=== PATIENT | female | born 1950 | race Caucasian/White ===

== ENCOUNTER 2017-02-09 10:45 | Outpatient (CLI) | payer MEDICARE, OTHER ==
[2017-02-09 11:02] LABS: #Basophils 0.1 thou/uL (0.0-0.2); #Eosinphils 0.2 thou/uL (0.0-0.7); #Lymphocytes 1.5 thou/uL (1.20-3.40); #Monocytes 0.4 thou/uL (0.11-0.59); #Neutrophils 3.6 thou/uL (1.40-6.50); %Basophils 1.4 % (0.0-1.0); %Eosinophils 3.5 % (0.0-10.0); %Lymphocytes 25.8 % (21.0-51.0); %Monocytes 6.7 % (0.0-10.0); %Neutrophils 62.6 % (42.0-75.0); Hemoglobin 13.8 g/dL (12.0-16.0); Mean Corpuscular HGB CONC 33.9 g/dL (32.0-36.0); Mean Corpuscular Hemoglobin 32.6 pg (27.0-31.0); Mean Platelet Volume 5.7 fL (7.4-10.4); Platelet Count 259 thou/uL (130-400); RBC Distribution Width 11.4 % (11.5-14.5); Red Blood Cell (RBC) Count 4.24 mill/uL (4.20-5.40); White Blood Cell (WBC) Count 5.8 thou/uL (4.8-10.8)
[2017-02-09 11:21] LABS: ALT (SGPT) 15 U/L (0-55); AST (SGOT) 20 U/L (5-34); Albumin 4.3 g/dL (3.4-4.8); Alkaline Phosphatase 40 U/L (40-150); Anion Gap 12 mmol/L (10-20); BUN (Urea Nitrogen) 11 mg/dL (9.8-20.1); Bilirubin, Total 0.7 mg/dL (0.2-1.2); Calc. Creatinine Clearance 0 mL/min (70-130); Calcium 9.1 mg/dL (7.8-10.44); Carbon Dioxide 24 mmol/L (23-31); Cardiac Risk 2.7 (Less than 4.5); Chloride 107 mmol/L (98-107); Cholesterol 177 mg/dL (< 200 Desired); Estimated GFR-MDRD 86; Globulin 2.1 g/dL (2.4-3.5); Glucose 100 mg/dL (80-115); HDL Cholesterol 66 mg/dL (>60 Neg Risk); LDL Cholesterol, Calculated 100 mg/dL; Protein, Total 6.4 g/dL (5.8-8.1); Sodium 139 mmol/L (136-145); Triglycerides 57 mg/dL (Less than 150)
[2017-02-09 18:10] LABS: Iron 84 ug/dL (50-170)
[2017-02-09 18:44] LABS: Ferritin 114.84 ng/mL (10-291)
== END 2017-02-09 10:46 | disposition home or self-care (01) ==
LOC: HPCALD 10:45
PROVIDERS: ATTEND Family Medicine
DX: Z13.6 Encounter for screening for cardiovascular disorders (principal); I10 Essential (primary) hypertension; D50.9 Iron deficiency anemia, unspecified; R94.6 Abnormal results of thyroid function studies
CPT/HCPCS: 36415; 80053; 80061; 82728; 83540; 84443; 85025

== ENCOUNTER 2017-02-12 09:21 | Outpatient (CLI) | payer MEDICARE, OTHER ==
[2017-02-12 11:29] LABS: Free T4 (Free Thyroxine) 0.88 ng/dL (0.70-1.48)
[2017-02-12 17:45] LABS: Free T3 2.78 pg/mL (1.71-3.71)
== END 2017-02-12 09:22 | disposition home or self-care (01) ==
LOC: HPCALD 09:21
PROVIDERS: ATTEND Family Medicine
DX: R94.6 Abnormal results of thyroid function studies (principal)
CPT/HCPCS: 36415; 84439; 84481

== ENCOUNTER 2019-05-05 16:06 | Inpatient (IN) | payer MEDICARE ==
[2019-05-05 16:52] LABS: #Basophils 0.1 thou/uL (0.0-0.2); #Eosinphils 0.1 thou/uL (0.0-0.7); #Lymphocytes 1.6 thou/uL (1.20-3.40); #Monocytes 0.9 thou/uL (0.11-0.59); #Neutrophils 9.8 thou/uL (1.40-6.50); %Basophils 0.6 % (0.0-1.0); %Eosinophils 0.6 % (0.0-10.0); %Lymphocytes 12.5 % (21.0-51.0); %Monocytes 7.5 % (0.0-10.0); %Neutrophils 78.7 % (42.0-75.0); Bilirubin Negative (Negative); Blood, Urine Trace (Negative); Clarity Clear (Clear); Glucose, Urine (Dipstick) Negative (Negative); Hemoglobin 9.9 g/dL (12.0-16.0); Leukocyte Negative (Negative); Mean Corpuscular HGB CONC 32.3 g/dL (32.0-36.0); Mean Corpuscular Hemoglobin 29.5 pg (27.0-31.0); Mean Corpuscular Volume 91.6 fL (78.0-98.0); Nitrite Negative (Negative); Platelet Count 442 thou/uL (130-400); Protein, Urine (Dipstick) Trace mg/dL (Neg-Trace); RBC Distribution Width 11.9 % (11.5-14.5); Red Blood Cell (RBC) Count 3.35 mill/uL (4.20-5.40); Urobilinogen 0.2 mg/dL (0.2-1.0); White Blood Cell (WBC) Count 12.4 thou/uL (4.8-10.8); pH, Urine 5.5 (5.0-9.0)
[2019-05-05 16:56] LABS: RBC/HPF 0-3 HPF (0-3)
[2019-05-05 16:57] LABS: Bacteria/HPF Rare-Few HPF (None Seen); Squamous Epithelial 0-3 HPF (0-3); WBC/HPF 0-3 HPF (0-3)
[2019-05-05 17:06] LABS: ALT (SGPT) 59 U/L (8-55); AST (SGOT) 66 U/L (5-34); Albumin 3.9 g/dL (3.4-4.8); Alkaline Phosphatase 61 U/L (40-150); Anion Gap 20 mmol/L (10-20); BUN (Urea Nitrogen) 63 mg/dL (9.8-20.1); Bilirubin, Total 0.2 mg/dL (0.2-1.2); Calc. Creatinine Clearance 0 mL/min (70-130); Calcium 10.5 mg/dL (7.8-10.44); Carbon Dioxide 26 mmol/L (23-31); Chloride 87 mmol/L (98-107); Estimated GFR-MDRD 26; Globulin 3.2 g/dL (2.4-3.5); Glucose 107 mg/dL (80-115); Potassium 3.5 mmol/L (3.5-5.1); Protein, Total 7.1 g/dL (6.0-8.3); Sodium 129 mmol/L (136-145)
[2019-05-05] MEDS ORDERED: Ketorolac Tromethamine 30 MG/ML VIAL ONE (17:17)
[2019-05-05] MEDS ORDERED: traMADol HCl 50 MG TAB ONE (17:17)
[2019-05-05] MEDS ORDERED: Ondansetron ODT 4 MG TAB SL PRN (20:53)
[2019-05-05] MEDS ORDERED: Ondansetron PF 4 MG/2 ML Vial IVP PRN (20:53)
[2019-05-05] MEDS: Sodium Chloride 0.9% 1,000 ML IV SCH (21:26)
[2019-05-05] MEDS ORDERED: LIDOCAINE TOP PRN (21:33)
[2019-05-05] MEDS ORDERED: Alendronate Sodium 70 mg Tablet PO SCH (21:45)
[2019-05-05 21:48] VITALS: BMI 23.8
[2019-05-05] MEDS: Ascorbic Acid 500 mg Chewable Tablet PO SCH (23:56)
[2019-05-06] MEDS: Sodium Chloride 0.9% 1,000 ML IV SCH ×4 (03:58→23:53)
[2019-05-06 05:47] LABS: #Basophils 0.1 thou/uL (0.0-0.2); #Eosinphils 0.3 thou/uL (0.0-0.7); #Neutrophils 7.7 thou/uL (1.40-6.50); %Basophils 0.7 % (0.0-1.0); %Eosinophils 2.7 % (0.0-10.0); %Lymphocytes 9.6 % (21.0-51.0); %Monocytes 10.2 % (0.0-10.0); %Neutrophils 76.8 % (42.0-75.0); Hemoglobin 7.9 g/dL (12.0-16.0); Mean Corpuscular HGB CONC 31.4 g/dL (32.0-36.0); Mean Corpuscular Hemoglobin 28.9 pg (27.0-31.0); Mean Corpuscular Volume 92.2 fL (78.0-98.0); Platelet Count 332 thou/uL (130-400); RBC Distribution Width 11.9 % (11.5-14.5); Red Blood Cell (RBC) Count 2.74 mill/uL (4.20-5.40)
[2019-05-06 05:48] LABS: Anion Gap 12 mmol/L (10-20)
[2019-05-06 05:54] LABS: BUN (Urea Nitrogen) 48 mg/dL (9.8-20.1); Calc. Creatinine Clearance 54 mL/min (70-130); Calcium 8.5 mg/dL (7.8-10.44); Carbon Dioxide 27 mmol/L (23-31); Chloride 96 mmol/L (98-107); Estimated GFR-MDRD 55; Glucose 95 mg/dL (80-115); Potassium 3.2 mmol/L (3.5-5.1); Sodium 132 mmol/L (136-145)
[2019-05-06] MEDS: Ascorbic Acid 500 mg Chewable Tablet PO SCH ×4 (06:01→23:52)
[2019-05-06] MEDS ORDERED: Potassium Chloride 20 MEQ TAB PO SCH (07:00)
[2019-05-06] MEDS ORDERED: Prevnar 13-Val Conj/PF 0.5 ML SYRINGE IM ONE (09:00)
[2019-05-06] MEDS ORDERED: Hydrochlorothiazide 25 MG TAB PO SCH (09:00)
[2019-05-06] MEDS: Gabapentin 100 MG CAP PO SCH ×2 (09:22→20:47)
[2019-05-06] MEDS: Calcium Carbonate 500 MG TAB PO SCH ×2 (09:23→20:47)
[2019-05-06] MEDS: Famotidine 20 MG TAB PO SCH ×2 (09:24→20:48)
[2019-05-06] MEDS: Furosemide 40 MG TAB PO SCH (09:24)
[2019-05-06] MEDS: Oxybutynin 5 MG TAB PO SCH (09:24)
[2019-05-06] MEDS: Stress 600 With Zinc 1 TAB PO SCH (09:25)
[2019-05-06] MEDS: GARLIC 100 MG PO SCH (09:27)
[2019-05-06] MEDS: Potassium [Potassium] 99 MG PO SCH (09:27)
[2019-05-06] MEDS ORDERED: Lidocaine 2% Jelly 5 ML TUBE ONE (09:27)
[2019-05-06] MEDS: traMADol HCl 50 MG TAB PO PRN ×2 (09:33→17:15)
--- NOTE | 2019-05-06 13:00 | HP ---
CHIEF COMPLAINT: Generalized weakness. HISTORY OF PRESENT ILLNESS: A 69-year-old female brought to the [facility] Emergency Department via EMS yesterday afternoon with complaints of generalized weakness over an unknown period of time; the patient lives at home alone. Workup of the patient reveals an acute renal failure with dehydration. She was subsequently started on normal saline intravenous fluids. The patient has chronic venous stasis with ulcerations involving her lower extremities, for which she is followed regularly by Dr. Cuello; due to her venous stasis, she is on both hydrochlorothiazide and Lasix, which may have contributed to her current state. The patient was subsequently admitted to the floor yesterday afternoon. As of this morning, after waking the patient from sleep, she has no current complaints. However, is unable to voice if she is reasonably feeling better or not at this point. She is oriented to place and person, but not time. She does appear to have good insight into her reason for admission here today. PAST MEDICAL HISTORY: Includes osteoporosis, osteoarthritis, hypertension, chronic venous stasis with ulcerations of the lower extremities. PAST SURGICAL HISTORY: Right reverse total shoulder arthroplasty, left reverse total shoulder arthroplasty, left hip surgery, hysterectomy, cystocele and rectocele repair via Dr. Erickson. Surgery for rectal prolapse, teeth extraction, neck surgery, tonsillectomy. MEDICATIONS: 1. Alendronate 70 mg weekly. 2. Ascorbic acid 500 mg q.6 hours. 3. Calcium carbonate 1000 mg b.i.d. 4. Lasix 40 mg daily. 5. Gabapentin 100 mg b.i.d. 6. Hydrochlorothiazide 12.5 mg daily. 7. Lisinopril 40 mg daily. 8. Oxybutynin 10 mg daily. 9. Tramadol p.r.n. ALLERGIES: SULFA AND LATEX. SOCIAL HISTORY: Denies tobacco, EtOH, or illicit drug use. She lives alone. FAMILY HISTORY IS: Noncontributory. REVIEW OF SYSTEMS: GENERAL: Denies fever, chills, or diaphoresis. EAR, NOSE, AND THROAT: Denies sore throat nasal drainage, or congestion. CARDIOVASCULAR: Denies chest pain or palpitations. RESPIRATORY: Denies shortness of breath or cough. GASTROINTESTINAL: Denies abdominal pain, nausea, vomiting, diarrhea or constipation. GENITOURINARY: Denies dysuria. MUSCULOSKELETAL: She has chronic joint pain. DERMATOLOGY: She has chronic venous stasis ulcers to the lower extremities. NEUROLOGICAL: Denies headache. LABORATORY DATA: White blood cell count is 10, hemoglobin and hematocrit of 7.9 and 25.2, platelets were 332. Sodium yesterday was 129, now it is 132; potassium is 3.2. BUN yesterday was 63, now 48. Creatinine yesterday 1.94, now is 1.00. GFR yesterday was 26, now it is 55. TSH is normal. PHYSICAL EXAMINATION: VITAL SIGNS: Temperature is 97.9, pulse is 68, respiratory rate is 18, oxygen is 98% on room air, blood pressure 123/83. GENERAL: The patient is alert and oriented to person and place, but not time. HEAD, EYES, EARS, NOSE, AND THROAT: Normocephalic and atraumatic. Extraocular muscles are intact bilaterally. She is wearing glasses. Moist mucous membranes. NECK: Supple with no lymphadenopathy. CARDIOVASCULAR: Regular rate and rhythm. She has a 2/6 systolic murmur. Normal S1, S2. RESPIRATORY: Clear to auscultation bilaterally without wheezes, rales, or rhonchi. ABDOMEN: Soft, nontender to palpation. EXTREMITIES: She has chronic stasis ulcers to bilateral lower extremities, which are currently bandaged. She has trace to 1+ edema to the lower extremities at baseline. NEUROLOGIC: Nonfocal with cranial nerves 2 through 12 grossly intact. ASSESSMENT AND PLAN: 1. Acute renal failure and prerenal azotemia, for which the patient has received intravenous fluids overnight with noted improvement in her renal function. We will decrease her IV fluids from 150 mL an hour to 100 mL an hour. 2. Dehydration. We will hold the patient's hydrochlorothiazide and continue her IV fluids at this time. 3. Normocytic anemia. The patient's hemoglobin is lower than her baseline. Will order iron studies and check her B12 level. 4. Chronic stasis ulcers to the lower extremities. The patient is followed by Dr. Cuello for this. We will continue wound care while she is here. 5. Hypokalemia. We will provide the patient with 40 mEq of potassium. 6. Hypertension. The patient is hemodynamically stable with blood pressure at goal. We will resume her blood pressure medications other than discontinuation of hydrochlorothiazide 12.5 mg daily. 7. Generalized weakness. We will have consultation via Physical Therapy and Occupational Therapy. 8. Prophylaxis. We will provide famotidine for GI prophylaxis. We will withhold DVT prophylaxis with Lovenox secondary to decreased renal function and anemia at this time. 9. Code status is full. 10. Disposition. We will plan for the patient to be able to return home once her renal status is back to baseline and she has been cleared by Physical Therapy and Occupational Therapy. Job ID: [id number] MTDD
[2019-05-06] MEDS: Lisinopril 10 MG TAB PO SCH (20:48)
[2019-05-06] MEDS: Acetaminophen/Codeine 30-300mg Tablet PO PRN (20:52)
[2019-05-07 05:36] LABS: #Basophils 0.1 thou/uL (0.0-0.2); #Eosinphils 0.2 thou/uL (0.0-0.7); #Lymphocytes 1.1 thou/uL (1.20-3.40); #Monocytes 0.7 thou/uL (0.11-0.59); #Neutrophils 6.9 thou/uL (1.40-6.50); %Basophils 0.9 % (0.0-1.0); %Eosinophils 2.4 % (0.0-10.0); %Lymphocytes 11.8 % (21.0-51.0); %Monocytes 8.1 % (0.0-10.0); %Neutrophils 76.7 % (42.0-75.0); Hemoglobin 8.3 g/dL (12.0-16.0); Mean Corpuscular HGB CONC 31.7 g/dL (32.0-36.0); Mean Corpuscular Hemoglobin 29.3 pg (27.0-31.0); Mean Corpuscular Volume 92.4 fL (78.0-98.0); Mean Platelet Volume 5.1 fL (7.4-10.4); Platelet Count 328 thou/uL (130-400); RBC Distribution Width 12.2 % (11.5-14.5); Red Blood Cell (RBC) Count 2.83 mill/uL (4.20-5.40)
[2019-05-07 05:45] LABS: Anion Gap 13 mmol/L (10-20)
[2019-05-07 06:15] LABS: ALT (SGPT) 36 U/L (8-55); AST (SGOT) 26 U/L (5-34); Albumin 2.8 g/dL (3.4-4.8); Alkaline Phosphatase 48 U/L (40-150); BUN (Urea Nitrogen) 25 mg/dL (9.8-20.1); Bilirubin, Total Less than 0.2 mg/dL (0.2-1.2); Calc. Creatinine Clearance 78 mL/min (70-130); Calcium 8.7 mg/dL (7.8-10.44); Carbon Dioxide 26 mmol/L (23-31); Chloride 102 mmol/L (98-107); Estimated GFR-MDRD 84; Globulin 2.4 g/dL (2.4-3.5); Glucose 99 mg/dL (80-115); Protein, Total 5.2 g/dL (6.0-8.3); Sodium 138 mmol/L (136-145)
[2019-05-07] MEDS: Ascorbic Acid 500 mg Chewable Tablet PO SCH ×3 (06:36→17:38)
[2019-05-07] MEDS: traMADol HCl 50 MG TAB PO PRN ×2 (08:21→20:43)
[2019-05-07] MEDS: Calcium Carbonate 500 MG TAB PO SCH ×2 (08:27→20:43)
[2019-05-07] MEDS: Furosemide 40 MG TAB PO SCH (08:28)
[2019-05-07] MEDS: Famotidine 20 MG TAB PO SCH ×2 (08:28→20:42)
[2019-05-07] MEDS: Oxybutynin 5 MG TAB PO SCH (08:29)
[2019-05-07] MEDS: Gabapentin 100 MG CAP PO SCH ×2 (08:29→20:42)
[2019-05-07] MEDS: Stress 600 With Zinc 1 TAB PO SCH (08:29)
[2019-05-07] MEDS: Sodium Chloride 0.9% 1,000 ML IV SCH (10:04)
[2019-05-07] MEDS: Potassium [Potassium] 99 MG PO SCH (10:24)
[2019-05-07] MEDS: GARLIC 100 MG PO SCH (10:25)
--- NOTE | 2019-05-07 12:19 | PRG ---
DATE OF SERVICE: 05/07/2019 SUBJECTIVE: The patient is doing fine. She is complaining of pain in both legs, chronic in nature. She denies any weakness, chest pain, shortness of breath, or headaches. OBJECTIVE: VITAL SIGNS: Blood pressure of 140/69, temperature of 98, pulse of 72, RR of 20, and O2 saturation 98% on room air. GENERAL: The patient is alert, oriented x3, not in respiratory distress. HEENT: Normocephalic, atraumatic. Pupils equal, reactive to light, wet mucous membrane. Negative for tonsillopharyngeal congestion. NECK: Supple. Negative for lymphadenopathy. CHEST AND LUNGS: Symmetrical expansion. Clear to auscultation. HEART: Regular rate and rhythm. Negative for murmur. ABDOMEN: Flat, soft, nontender. Negative for CVA tenderness. EXTREMITIES: Good symmetrical movement of both upper extremities. Lower extremity has JANELL wrap. She has chronic stasis ulcers that is being managed by Wound Care. NEUROLOGIC: Nonfocal. LABORATORY DATA: CBC; hemoglobin of 8.3, hematocrit of 26.2, platelet count of 328, MCV of 92, lymphocytes of 11.8, neutrophils of 76. Comp met; sodium of 138, potassium of 3.0, BUN of 25, creatinine of 0.69, lactic acid of 8.7. ASSESSMENT: 1. Acute renal insufficiency secondary to volume depletion/dehydration, resolved. The patient is tolerating p.o. liquids. 2. Normocytic anemia, pending iron studies. 3. Chronic stasis ulcers to both lower extremities under wound care with Dr. Cuello. 4. Hypokalemia. Continue potassium replacement. 5. Hypertension, slowly introduce her blood pressure medicine to avoid hemodynamic compromise. 6. Generalized weakness with recurrent falls. Resume physical and occupational therapy on Thursday. 7. Gastrointestinal prophylaxis with famotidine. 8. Deep venous thrombosis prophylaxis with Lovenox. 9. Disposition, discontinue to home once clinically stable and cleared by Physical and Occupational Therapy. 10. logistics planning manager to assist with discharge planning. Job ID: [id number]
[2019-05-07] MEDS: Acetaminophen/Codeine 30-300mg Tablet PO PRN (12:28)
[2019-05-07 14:54] LABS: Iron 19 ug/dL (50-170); Iron Binding Capacity, Total 188 mcg/dL (265-497)
[2019-05-07] MEDS: Acetaminophen 325 MG TAB PO PRN (17:38)
[2019-05-07] MEDS: Potassium Chloride 20 MEQ TAB PO SCH (17:39)
[2019-05-07] MEDS: Lisinopril 10 MG TAB PO SCH (20:42)
[2019-05-08] MEDS: Ascorbic Acid 500 mg Chewable Tablet PO SCH ×5 (00:16→23:59)
[2019-05-08 05:36] LABS: Anion Gap 13 mmol/L (10-20); BUN (Urea Nitrogen) 15 mg/dL (9.8-20.1); Calc. Creatinine Clearance 88 mL/min (70-130); Calcium 9.1 mg/dL (7.8-10.44); Carbon Dioxide 27 mmol/L (23-31); Chloride 103 mmol/L (98-107); Estimated GFR-MDRD Greater than 90; Glucose 110 mg/dL (80-115); Sodium 140 mmol/L (136-145)
[2019-05-08] MEDS: traMADol HCl 50 MG TAB PO PRN (07:34)
[2019-05-08] MEDS: Potassium Chloride 20 MEQ TAB PO SCH ×2 (08:40→17:19)
[2019-05-08] MEDS: Gabapentin 100 MG CAP PO SCH ×2 (08:41→20:53)
[2019-05-08] MEDS: Stress 600 With Zinc 1 TAB PO SCH (08:41)
[2019-05-08] MEDS: Famotidine 20 MG TAB PO SCH ×2 (08:41→20:53)
[2019-05-08] MEDS: Furosemide 40 MG TAB PO SCH (08:41)
[2019-05-08] MEDS: Oxybutynin 5 MG TAB PO SCH (08:41)
[2019-05-08] MEDS: Potassium [Potassium] 99 MG PO SCH (08:42)
[2019-05-08] MEDS: GARLIC 100 MG PO SCH (08:44)
[2019-05-08] MEDS: Calcium Carbonate 500 MG TAB PO SCH ×2 (08:51→20:53)
[2019-05-08] MEDS: Acetaminophen/Codeine 30-300mg Tablet PO PRN ×3 (10:57→21:20)
--- NOTE | 2019-05-08 14:47 | PRG ---
DATE OF SERVICE: 05/08/2019 PRIMARY CARE PHYSICIAN: Dr. Schaeffer. SUBJECTIVE: The patient is complaining of pain in both legs, not improving with current regimen of Tylenol, Tylenol with Codeine and tramadol. She has a good appetite. She denies chest pain, shortness of breath, or weakness. OBJECTIVE: VITAL SIGNS: Blood pressure of 165/75, temperature of 98.4, pulse of 74, RR of 18, and O2 saturation 95% on room. GENERAL: The patient is alert, oriented, not in distress. HEENT: Normocephalic, atraumatic. Pupils equal, reactive to light. Wet mucous membrane. Negative for tonsillopharyngeal congestion. NECK: Supple. Negative for lymphadenopathy. CHEST AND LUNGS: Symmetrical expansion. Clear to auscultation bilaterally. HEART: Regular rate, rhythm. Negative for murmur. ABDOMEN: Flat, soft, nontender. EXTREMITIES: Good symmetrical movement of both upper and lower extremities. Lower extremities with JANELL wrap. She has chronic stasis ulcer that is being managed by Wound Care. NEUROLOGIC: Nonfocal. LABORATORY DATA: CBC; hemoglobin of 8.3, hematocrit of 26.2, platelet count of 328, neutrophils of 76, lymphocytes of 11. BMP; sodium 140, potassium of 3, chloride of 103, carbon dioxide of 27, BUN of 15, creatinine of 0.61, glucose of 110, calcium of 9.1, vitamin B12 of 2000. Iron study is still pending. ASSESSMENT: 1. Acute renal insufficiency secondary to volume depletion/dehydration, resolved. We will discontinue IV site. 2. Hypokalemia. We will increase the potassium replacement to 40 mEq b.i.d. We will discontinue her potassium home medications. 3. Chronic stasis ulcers to both lower extremity with pain, currently under controlled with regimen of Tylenol, Tylenol with Codeine and tramadol. We will administer Tylenol with Codeine every 6 hours. 4. Hypertension. Adjust blood pressure medicine. 5. Generalized weakness with recurrent falls. 6. Resume physical and occupational therapy on Thursday. 7. Transfer of care to Dr. Schaeffer in a.m. Job ID: [id number]
[2019-05-08] MEDS: Lisinopril 10 MG TAB PO SCH (20:53)
[2019-05-09] MEDS: traMADol HCl 50 MG TAB PO PRN ×2 (02:05→18:41)
[2019-05-09] MEDS: Acetaminophen/Codeine 30-300mg Tablet PO PRN ×3 (03:47→15:27)
[2019-05-09] MEDS: Ascorbic Acid 500 mg Chewable Tablet PO SCH ×3 (05:17→17:25)
[2019-05-09] MEDS: Ondansetron ODT 4 MG TAB PO PRN (05:17)
[2019-05-09 08:04] LABS: Anion Gap 14 mmol/L (10-20); BUN (Urea Nitrogen) 8 mg/dL (9.8-20.1); Calc. Creatinine Clearance 90 mL/min (70-130); Calcium 9.4 mg/dL (7.8-10.44); Carbon Dioxide 27 mmol/L (23-31); Chloride 101 mmol/L (98-107); Estimated GFR-MDRD Greater than 90; Glucose 118 mg/dL (80-115); Magnesium 1.5 mg/dL (1.6-2.6); Potassium 3.6 mmol/L (3.5-5.1); Sodium 138 mmol/L (136-145)
[2019-05-09] MEDS: Oxybutynin 5 MG TAB PO SCH (08:21)
[2019-05-09] MEDS: Gabapentin 100 MG CAP PO SCH ×2 (08:22→20:56)
[2019-05-09] MEDS: Famotidine 20 MG TAB PO SCH ×2 (08:22→20:56)
[2019-05-09] MEDS: Potassium Chloride 20 MEQ TAB PO SCH ×2 (08:22→17:25)
[2019-05-09] MEDS: Stress 600 With Zinc 1 TAB PO SCH (08:22)
[2019-05-09] MEDS: Furosemide 40 MG TAB PO SCH (08:23)
[2019-05-09] MEDS: Calcium Carbonate 500 MG TAB PO SCH ×2 (08:23→20:56)
[2019-05-09] MEDS: Amlodipine 5 MG TAB PO SCH (08:28)
[2019-05-09] MEDS: GARLIC 100 MG PO SCH (09:17)
[2019-05-09] MEDS: Lisinopril 10 MG TAB PO SCH (20:55)
[2019-05-10] MEDS: Ascorbic Acid 500 mg Chewable Tablet PO SCH ×4 (00:15→17:33)
[2019-05-10] MEDS: Calcium Carbonate 500 MG TAB PO SCH ×2 (08:23→20:53)
[2019-05-10] MEDS: Oxybutynin 5 MG TAB PO SCH (08:23)
[2019-05-10] MEDS: Gabapentin 100 MG CAP PO SCH ×2 (08:24→20:53)
[2019-05-10] MEDS: Stress 600 With Zinc 1 TAB PO SCH (08:24)
[2019-05-10] MEDS: Acetaminophen/Codeine 30-300mg Tablet PO PRN ×2 (08:24→14:08)
[2019-05-10] MEDS: Famotidine 20 MG TAB PO SCH ×2 (08:24→20:53)
[2019-05-10] MEDS: Potassium Chloride 20 MEQ TAB PO SCH ×2 (08:24→17:33)
[2019-05-10] MEDS: Furosemide 40 MG TAB PO SCH (08:24)
[2019-05-10] MEDS: Magnesium Oxide 400 MG TAB PO SCH (08:24)
[2019-05-10] MEDS: Amlodipine 5 MG TAB PO SCH (08:25)
[2019-05-10] MEDS: GARLIC 100 MG PO SCH (08:31)
[2019-05-10] MEDS: Polyethylene Glycol 3350 17 GM Packet PO PRN (11:56)
[2019-05-10] MEDS: Docusate 100 MG CAP PO PRN (11:56)
[2019-05-10] MEDS: traMADol HCl 50 MG TAB PO PRN (17:37)
[2019-05-10] MEDS: Lisinopril 10 MG TAB PO SCH (20:52)
[2019-05-11] MEDS: Ascorbic Acid 500 mg Chewable Tablet PO SCH ×4 (00:34→17:07)
[2019-05-11 05:33] LABS: #Basophils 0.1 thou/uL (0.0-0.2); #Eosinphils 0.4 thou/uL (0.0-0.7); #Lymphocytes 1.9 thou/uL (1.20-3.40); #Monocytes 0.9 thou/uL (0.11-0.59); #Neutrophils 7.9 thou/uL (1.40-6.50); %Eosinophils 3.7 % (0.0-10.0); %Lymphocytes 16.9 % (21.0-51.0); %Monocytes 7.7 % (0.0-10.0); %Neutrophils 70.7 % (42.0-75.0); Hemoglobin 9.9 g/dL (12.0-16.0); Mean Corpuscular HGB CONC 31.6 g/dL (32.0-36.0); Mean Corpuscular Hemoglobin 29.1 pg (27.0-31.0); Mean Corpuscular Volume 92.1 fL (78.0-98.0); Mean Platelet Volume 4.7 fL (7.4-10.4); Platelet Count 386 thou/uL (130-400); RBC Distribution Width 12.5 % (11.5-14.5); Red Blood Cell (RBC) Count 3.39 mill/uL (4.20-5.40); White Blood Cell (WBC) Count 11.1 thou/uL (4.8-10.8)
[2019-05-11 05:44] LABS: ALT (SGPT) 21 U/L (8-55); AST (SGOT) 13 U/L (5-34); Albumin 3.3 g/dL (3.4-4.8); Alkaline Phosphatase 47 U/L (40-150); Anion Gap 13 mmol/L (10-20); BUN (Urea Nitrogen) 16 mg/dL (9.8-20.1); Bilirubin, Total 0.2 mg/dL (0.2-1.2); Calc. Creatinine Clearance 91 mL/min (70-130); Calcium 9.8 mg/dL (7.8-10.44); Carbon Dioxide 24 mmol/L (23-31); Chloride 106 mmol/L (98-107); Estimated GFR-MDRD Greater than 90; Globulin 2.7 g/dL (2.4-3.5); Glucose 107 mg/dL (80-115); Potassium 4.7 mmol/L (3.5-5.1); Sodium 138 mmol/L (136-145)
[2019-05-11] MEDS: traMADol HCl 50 MG TAB PO PRN ×2 (07:44→14:31)
[2019-05-11] MEDS ORDERED: Lidocaine 2% Jelly 5 ML TUBE TOP PRN (07:52)
[2019-05-11] MEDS: Ondansetron ODT 4 MG TAB PO PRN (08:03)
[2019-05-11] MEDS: Calcium Carbonate 500 MG TAB PO SCH ×2 (08:52→20:21)
[2019-05-11] MEDS: Magnesium Oxide 400 MG TAB PO SCH (08:52)
[2019-05-11] MEDS: Stress 600 With Zinc 1 TAB PO SCH (08:52)
[2019-05-11] MEDS: Famotidine 20 MG TAB PO SCH ×2 (08:53→20:20)
[2019-05-11] MEDS: Gabapentin 100 MG CAP PO SCH ×3 (08:54→20:21)
[2019-05-11] MEDS: Furosemide 40 MG TAB PO SCH (08:54)
[2019-05-11] MEDS: Oxybutynin 5 MG TAB PO SCH (08:56)
[2019-05-11] MEDS: Docusate 100 MG CAP PO PRN (08:56)
[2019-05-11] MEDS: Amlodipine 5 MG TAB PO SCH (08:57)
[2019-05-11] MEDS: Polyethylene Glycol 3350 17 GM Packet PO PRN (08:59)
[2019-05-11] MEDS: GARLIC 100 MG PO SCH (09:05)
[2019-05-11] MEDS: Potassium Chloride 20 MEQ TAB PO SCH ×2 (09:06→17:07)
[2019-05-11] MEDS ORDERED: Lidocaine 2% Jelly 5 ML TUBE ONE (09:32)
[2019-05-11] MEDS: Acetaminophen/Codeine 30-300mg Tablet PO PRN ×2 (10:38→17:10)
[2019-05-11] MEDS: Lisinopril 10 MG TAB PO SCH (20:20)
[2019-05-11] MEDS: Acetaminophen 325 MG TAB PO PRN (20:21)
[2019-05-11] MEDS: diphenhydrAMINE 25 MG CAP PO PRN (20:21)
[2019-05-12] MEDS: Ascorbic Acid 500 mg Chewable Tablet PO SCH ×4 (01:13→18:18)
[2019-05-12] MEDS: traMADol HCl 50 MG TAB PO PRN ×2 (07:14→13:51)
[2019-05-12] MEDS: Famotidine 20 MG TAB PO SCH ×2 (08:08→20:22)
[2019-05-12] MEDS: Stress 600 With Zinc 1 TAB PO SCH (08:08)
[2019-05-12] MEDS: Gabapentin 100 MG CAP PO SCH ×2 (08:09→20:22)
[2019-05-12] MEDS: Magnesium Oxide 400 MG TAB PO SCH (08:09)
[2019-05-12] MEDS: Oxybutynin 5 MG TAB PO SCH (08:09)
[2019-05-12] MEDS: Calcium Carbonate 500 MG TAB PO SCH ×2 (08:09→20:21)
[2019-05-12] MEDS: Amlodipine 5 MG TAB PO SCH (08:11)
[2019-05-12] MEDS: Furosemide 40 MG TAB PO SCH (08:12)
[2019-05-12] MEDS: Potassium Chloride 20 MEQ TAB PO SCH ×2 (08:12→16:50)
[2019-05-12] MEDS: GARLIC 100 MG PO SCH (08:12)
[2019-05-12] MEDS: Acetaminophen/Codeine 30-300mg Tablet PO PRN (16:48)
[2019-05-12 20:01] VITALS: BP 109/53; TEMP 98.7
[2019-05-12] MEDS: Lisinopril 10 MG TAB PO SCH (20:21)
[2019-05-12] MEDS: diphenhydrAMINE 25 MG CAP PO PRN (20:22)
[2019-05-12] MEDS: Acetaminophen 325 MG TAB PO PRN (20:22)
== END 2019-05-12 21:34 | disposition swing bed (61) | DRG 641 ==
LOC: BURERS 16:06 → BURMED 17:34 → OBSVTOIN 05-06 13:00
PROVIDERS: ADMIT Family Medicine; ATTEND Family Medicine
DX: E86.0 Dehydration (principal); N17.9 Acute kidney failure, unspecified; I87.2 Venous insufficiency (chronic) (peripheral); M81.0 Age-related osteoporosis without current pathological fracture; I10 Essential (primary) hypertension; Z96.612 Presence of left artificial shoulder joint; Z96.611 Presence of right artificial shoulder joint; D64.9 Anemia, unspecified; E87.6 Hypokalemia; E03.9 Hypothyroidism, unspecified; Z96.642 Presence of left artificial hip joint; R29.6 Repeated falls; Z90.710 Acquired absence of both cervix and uterus; Z90.89 Acquired absence of other organs; Z88.2 Allergy status to sulfonamides; Z91.040 Latex allergy status
CPT/HCPCS: 36415; 80048; 80053; 81003; 81015; 82607; 82728; 83540; 83550; 83605; 83735; 83880; 84443; 84484; 85025; 87070; 87077; 87186; 87205; 93005; 96361; 96374; 97602; J1885; Q0162; Q0163

== ENCOUNTER 2019-05-12 21:37 | Inpatient (IN) | payer MEDICARE ==
[2019-05-13] MEDS ORDERED: Polyethylene Glycol 3350 17 GM Packet PO PRN (01:04)
[2019-05-13] MEDS ORDERED: Lidocaine 2% Jelly 5 ML TUBE TOP PRN (01:05)
[2019-05-13] MEDS: Acetaminophen/Codeine 30-300mg Tablet PO PRN ×3 (01:20→21:15)
[2019-05-13] MEDS: Ascorbic Acid 500 mg Chewable Tablet PO SCH ×3 (05:06→17:46)
[2019-05-13] MEDS: traMADol HCl 50 MG TAB PO PRN ×2 (08:07→16:40)
[2019-05-13] MEDS: Famotidine 20 MG TAB PO SCH ×2 (08:44→21:15)
[2019-05-13] MEDS: Oxybutynin 5 MG TAB PO SCH (08:44)
[2019-05-13] MEDS: Stress 600 With Zinc 1 TAB PO SCH (08:44)
[2019-05-13] MEDS: Potassium Chloride 20 MEQ TAB PO SCH ×2 (08:44→17:47)
[2019-05-13] MEDS: Calcium Carbonate 500 MG TAB PO SCH ×2 (08:44→17:47)
[2019-05-13] MEDS: Magnesium Oxide 400 MG TAB PO SCH (08:45)
[2019-05-13] MEDS: Amlodipine 5 MG TAB PO SCH (08:45)
[2019-05-13] MEDS: Furosemide 40 MG TAB PO SCH (08:45)
[2019-05-13] MEDS: Lisinopril 20 MG TAB PO SCH (08:46)
[2019-05-13] MEDS: Gabapentin 100 MG CAP PO SCH ×2 (08:46→21:15)
[2019-05-13] MEDS: diphenhydrAMINE 25 MG CAP PO PRN ×2 (13:48→21:15)
[2019-05-14] MEDS: Ascorbic Acid 500 mg Chewable Tablet PO SCH ×4 (00:17→18:15)
[2019-05-14] MEDS: Acetaminophen/Codeine 30-300mg Tablet PO PRN ×2 (04:40→10:37)
[2019-05-14] MEDS: Oxybutynin 5 MG TAB PO SCH (10:21)
[2019-05-14] MEDS: Gabapentin 100 MG CAP PO SCH ×2 (10:22→20:56)
[2019-05-14] MEDS: Magnesium Oxide 400 MG TAB PO SCH (10:22)
[2019-05-14] MEDS: Stress 600 With Zinc 1 TAB PO SCH (10:22)
[2019-05-14] MEDS: Amlodipine 5 MG TAB PO SCH (10:22)
[2019-05-14] MEDS: Calcium Carbonate 500 MG TAB PO SCH ×2 (10:26→18:14)
[2019-05-14] MEDS: Potassium Chloride 20 MEQ TAB PO SCH ×2 (10:26→18:14)
[2019-05-14] MEDS: Famotidine 20 MG TAB PO SCH ×2 (10:26→20:56)
[2019-05-14] MEDS: Furosemide 40 MG TAB PO SCH (10:27)
[2019-05-14] MEDS: Docusate 100 MG CAP PO PRN (10:27)
[2019-05-14] MEDS: Lisinopril 20 MG TAB PO SCH (10:27)
[2019-05-14] MEDS: HYDROcodone/Acetaminophen 5/325 mg Tablet PO PRN ×2 (12:16→18:15)
[2019-05-14] MEDS: diphenhydrAMINE 25 MG CAP PO PRN (12:17)
[2019-05-14] MEDS: Linezolid 600 MG TAB PO SCH (20:56)
[2019-05-15] MEDS: diphenhydrAMINE 25 MG CAP PO PRN ×2 (00:24→11:24)
[2019-05-15] MEDS: HYDROcodone/Acetaminophen 5/325 mg Tablet PO PRN ×3 (00:24→21:18)
[2019-05-15] MEDS: Ascorbic Acid 500 mg Chewable Tablet PO SCH ×4 (00:24→17:15)
[2019-05-15] MEDS: traMADol HCl 50 MG TAB PO PRN (05:24)
[2019-05-15] MEDS: Calcium Carbonate 500 MG TAB PO SCH ×2 (08:58→17:15)
[2019-05-15] MEDS: Linezolid 600 MG TAB PO SCH ×2 (08:58→21:18)
[2019-05-15] MEDS: Stress 600 With Zinc 1 TAB PO SCH (08:58)
[2019-05-15] MEDS: Amlodipine 5 MG TAB PO SCH (08:59)
[2019-05-15] MEDS: Famotidine 20 MG TAB PO SCH ×2 (08:59→21:18)
[2019-05-15] MEDS: Gabapentin 100 MG CAP PO SCH ×2 (08:59→21:18)
[2019-05-15] MEDS: Magnesium Oxide 400 MG TAB PO SCH (08:59)
[2019-05-15] MEDS: Potassium Chloride 20 MEQ TAB PO SCH ×2 (08:59→17:15)
[2019-05-15] MEDS: Furosemide 40 MG TAB PO SCH (08:59)
[2019-05-15] MEDS: Oxybutynin 5 MG TAB PO SCH (08:59)
[2019-05-15] MEDS: Saccharomyces boulardii 250 MG CAP PO SCH (08:59)
[2019-05-15] MEDS: Lisinopril 20 MG TAB PO SCH (08:59)
[2019-05-16] MEDS: Ascorbic Acid 500 mg Chewable Tablet PO SCH ×4 (00:42→17:57)
[2019-05-16 05:20] LABS: ALT (SGPT) 12 U/L (8-55); AST (SGOT) 13 U/L (5-34); Albumin 3.3 g/dL (3.4-4.8); Alkaline Phosphatase 54 U/L (40-150); Anion Gap 12 mmol/L (10-20); BUN (Urea Nitrogen) 18 mg/dL (9.8-20.1); Bilirubin, Total 0.3 mg/dL (0.2-1.2); Calc. Creatinine Clearance 80 mL/min (70-130); Calcium 8.9 mg/dL (7.8-10.44); Carbon Dioxide 22 mmol/L (23-31); Chloride 109 mmol/L (98-107); Estimated GFR-MDRD 87; Globulin 2.8 g/dL (2.4-3.5); Glucose 109 mg/dL (80-115); Potassium 4.4 mmol/L (3.5-5.1); Protein, Total 6.1 g/dL (6.0-8.3); Sodium 139 mmol/L (136-145)
[2019-05-16 05:26] LABS: #Basophils 0.1 thou/uL (0.0-0.2); #Eosinphils 0.4 thou/uL (0.0-0.7); #Lymphocytes 1.5 thou/uL (1.20-3.40); #Monocytes 0.8 thou/uL (0.11-0.59); #Neutrophils 7.2 thou/uL (1.40-6.50); %Basophils 1.1 % (0.0-1.0); %Eosinophils 4.5 % (0.0-10.0); %Lymphocytes 14.6 % (21.0-51.0); %Monocytes 7.9 % (0.0-10.0); Hemoglobin 9.7 g/dL (12.0-16.0); Mean Corpuscular Hemoglobin 29.3 pg (27.0-31.0); Mean Corpuscular Volume 94.7 fL (78.0-98.0); Platelet Count 384 thou/uL (130-400); RBC Distribution Width 13.1 % (11.5-14.5); Red Blood Cell (RBC) Count 3.32 mill/uL (4.20-5.40)
[2019-05-16] MEDS: HYDROcodone/Acetaminophen 5/325 mg Tablet PO PRN ×3 (05:51→21:51)
[2019-05-16] MEDS ORDERED: traMADol HCl 50 MG TAB ONE (09:34)
[2019-05-16] MEDS: Potassium Chloride 20 MEQ TAB PO SCH ×2 (09:42→17:56)
[2019-05-16] MEDS: Oxybutynin 5 MG TAB PO SCH (09:42)
[2019-05-16] MEDS: Famotidine 20 MG TAB PO SCH ×2 (09:42→20:36)
[2019-05-16] MEDS: Magnesium Oxide 400 MG TAB PO SCH (09:42)
[2019-05-16] MEDS: Calcium Carbonate 500 MG TAB PO SCH ×2 (09:42→17:56)
[2019-05-16] MEDS: Stress 600 With Zinc 1 TAB PO SCH (09:42)
[2019-05-16] MEDS: Gabapentin 100 MG CAP PO SCH ×2 (09:42→20:36)
[2019-05-16] MEDS: Saccharomyces boulardii 250 MG CAP PO SCH (09:42)
[2019-05-16] MEDS: traMADol HCl 50 MG TAB PO PRN (09:43)
[2019-05-16] MEDS: Furosemide 40 MG TAB PO SCH (09:44)
[2019-05-16] MEDS: Amlodipine 5 MG TAB PO SCH (09:45)
[2019-05-16] MEDS: Docusate 100 MG CAP PO PRN (09:45)
[2019-05-16] MEDS: Linezolid 600 MG TAB PO SCH ×2 (09:45→20:36)
[2019-05-16] MEDS: Lisinopril 20 MG TAB PO SCH (09:46)
[2019-05-17] MEDS: Ascorbic Acid 500 mg Chewable Tablet PO SCH ×4 (00:03→17:20)
[2019-05-17] MEDS: traMADol HCl 50 MG TAB PO PRN (00:03)
[2019-05-17] MEDS: Ondansetron ODT 4 MG TAB PO PRN (03:24)
[2019-05-17] MEDS: HYDROcodone/Acetaminophen 5/325 mg Tablet PO PRN ×2 (05:45→13:30)
[2019-05-17] MEDS: Saccharomyces boulardii 250 MG CAP PO SCH (09:33)
[2019-05-17] MEDS: Stress 600 With Zinc 1 TAB PO SCH (09:33)
[2019-05-17] MEDS: Oxybutynin 5 MG TAB PO SCH (09:33)
[2019-05-17] MEDS: Furosemide 40 MG TAB PO SCH (09:33)
[2019-05-17] MEDS: Lisinopril 20 MG TAB PO SCH (09:33)
[2019-05-17] MEDS: Calcium Carbonate 500 MG TAB PO SCH ×2 (09:34→17:20)
[2019-05-17] MEDS: Magnesium Oxide 400 MG TAB PO SCH (09:34)
[2019-05-17] MEDS: Amlodipine 5 MG TAB PO SCH (09:35)
[2019-05-17] MEDS: Linezolid 600 MG TAB PO SCH ×2 (09:35→21:39)
[2019-05-17] MEDS: Famotidine 20 MG TAB PO SCH ×2 (09:35→21:39)
[2019-05-17] MEDS: Gabapentin 100 MG CAP PO SCH ×2 (09:35→21:39)
[2019-05-17] MEDS: Potassium Chloride 20 MEQ TAB PO SCH ×2 (09:36→17:20)
[2019-05-17] MEDS: diphenhydrAMINE 25 MG CAP PO PRN (21:39)
[2019-05-18] MEDS: Ascorbic Acid 500 mg Chewable Tablet PO SCH ×4 (00:15→17:23)
[2019-05-18] MEDS: traMADol HCl 50 MG TAB PO PRN ×3 (01:43→16:34)
[2019-05-18] MEDS: Famotidine 20 MG TAB PO SCH ×2 (09:18→21:08)
[2019-05-18] MEDS: Magnesium Oxide 400 MG TAB PO SCH (09:18)
[2019-05-18] MEDS: Linezolid 600 MG TAB PO SCH ×2 (09:18→21:08)
[2019-05-18] MEDS: Furosemide 40 MG TAB PO SCH (09:18)
[2019-05-18] MEDS: Gabapentin 100 MG CAP PO SCH ×2 (09:18→21:08)
[2019-05-18] MEDS: Oxybutynin 5 MG TAB PO SCH (09:19)
[2019-05-18] MEDS: Calcium Carbonate 500 MG TAB PO SCH ×2 (09:19→16:33)
[2019-05-18] MEDS: Saccharomyces boulardii 250 MG CAP PO SCH (09:19)
[2019-05-18] MEDS: Stress 600 With Zinc 1 TAB PO SCH (09:19)
[2019-05-18] MEDS: Lisinopril 20 MG TAB PO SCH (09:20)
[2019-05-18] MEDS: Potassium Chloride 20 MEQ TAB PO SCH ×2 (09:21→16:35)
[2019-05-18] MEDS: Amlodipine 5 MG TAB PO SCH ×2 (09:22→09:24)
[2019-05-18] MEDS: diphenhydrAMINE 25 MG CAP PO PRN ×2 (09:28→21:53)
[2019-05-18] MEDS: HYDROcodone/Acetaminophen 5/325 mg Tablet PO PRN ×2 (11:10→21:09)
[2019-05-18 14:40] VITALS: BMI 19.7
[2019-05-19] MEDS: Ascorbic Acid 500 mg Chewable Tablet PO SCH ×4 (00:07→17:17)
[2019-05-19] MEDS: traMADol HCl 50 MG TAB PO PRN ×2 (06:47→11:53)
[2019-05-19] MEDS: Lisinopril 20 MG TAB PO SCH (09:40)
[2019-05-19] MEDS: Gabapentin 100 MG CAP PO SCH ×2 (09:40→21:28)
[2019-05-19] MEDS: Calcium Carbonate 500 MG TAB PO SCH ×2 (09:41→17:15)
[2019-05-19] MEDS: Stress 600 With Zinc 1 TAB PO SCH (09:41)
[2019-05-19] MEDS: Furosemide 40 MG TAB PO SCH (09:41)
[2019-05-19] MEDS: Amlodipine 5 MG TAB PO SCH (09:42)
[2019-05-19] MEDS: Famotidine 20 MG TAB PO SCH ×2 (09:43→21:29)
[2019-05-19] MEDS: Linezolid 600 MG TAB PO SCH ×2 (09:43→21:28)
[2019-05-19] MEDS: Saccharomyces boulardii 250 MG CAP PO SCH (09:43)
[2019-05-19] MEDS: Oxybutynin 5 MG TAB PO SCH (09:43)
[2019-05-19] MEDS: Potassium Chloride 20 MEQ TAB PO SCH ×2 (09:44→17:16)
[2019-05-19] MEDS: Magnesium Oxide 400 MG TAB PO SCH (09:49)
[2019-05-19] MEDS: diphenhydrAMINE 25 MG CAP PO PRN (11:55)
[2019-05-19] MEDS: HYDROcodone/Acetaminophen 5/325 mg Tablet PO PRN (21:29)
[2019-05-20] MEDS: Ascorbic Acid 500 mg Chewable Tablet PO SCH ×4 (00:11→17:04)
[2019-05-20] MEDS: diphenhydrAMINE 25 MG CAP PO PRN ×2 (00:11→17:05)
[2019-05-20] MEDS: traMADol HCl 50 MG TAB PO PRN ×2 (07:07→20:35)
[2019-05-20] MEDS ORDERED: ALPRAZolam 0.5 MG TAB PO PRN (08:00)
[2019-05-20] MEDS: Saccharomyces boulardii 250 MG CAP PO SCH (09:17)
[2019-05-20] MEDS: Linezolid 600 MG TAB PO SCH ×2 (09:17→20:36)
[2019-05-20] MEDS: Famotidine 20 MG TAB PO SCH ×2 (09:17→20:34)
[2019-05-20] MEDS: Stress 600 With Zinc 1 TAB PO SCH (09:18)
[2019-05-20] MEDS: Lisinopril 20 MG TAB PO SCH (09:18)
[2019-05-20] MEDS: Oxybutynin 5 MG TAB PO SCH (09:19)
[2019-05-20] MEDS: Magnesium Oxide 400 MG TAB PO SCH (09:19)
[2019-05-20] MEDS: Calcium Carbonate 500 MG TAB PO SCH ×2 (09:19→17:02)
[2019-05-20] MEDS: Potassium Chloride 20 MEQ TAB PO SCH ×2 (09:20→17:02)
[2019-05-20] MEDS: Gabapentin 100 MG CAP PO SCH ×2 (09:21→20:34)
[2019-05-20] MEDS: Furosemide 40 MG TAB PO SCH (09:21)
[2019-05-20] MEDS: HYDROcodone/Acetaminophen 5/325 mg Tablet PO PRN (11:09)
[2019-05-21] MEDS: HYDROcodone/Acetaminophen 5/325 mg Tablet PO PRN ×2 (02:37→17:25)
[2019-05-21] MEDS: Ascorbic Acid 500 mg Chewable Tablet PO SCH ×4 (02:43→17:18)
[2019-05-21] MEDS: Saccharomyces boulardii 250 MG CAP PO SCH (09:18)
[2019-05-21] MEDS: Calcium Carbonate 500 MG TAB PO SCH ×2 (09:18→17:16)
[2019-05-21] MEDS: Furosemide 40 MG TAB PO SCH (09:18)
[2019-05-21] MEDS: Famotidine 20 MG TAB PO SCH ×2 (09:19→21:33)
[2019-05-21] MEDS: Potassium Chloride 20 MEQ TAB PO SCH ×2 (09:19→17:16)
[2019-05-21] MEDS: Lisinopril 20 MG TAB PO SCH (09:21)
[2019-05-21] MEDS: Amlodipine 5 MG TAB PO SCH (09:27)
[2019-05-21] MEDS: Gabapentin 100 MG CAP PO SCH ×2 (09:28→21:33)
[2019-05-21] MEDS: Stress 600 With Zinc 1 TAB PO SCH (09:28)
[2019-05-21] MEDS: Oxybutynin 5 MG TAB PO SCH (09:28)
[2019-05-21] MEDS: Linezolid 600 MG TAB PO SCH ×2 (09:34→21:33)
[2019-05-21] MEDS: Magnesium Oxide 400 MG TAB PO SCH (09:35)
[2019-05-21] MEDS: traMADol HCl 50 MG TAB PO PRN (12:43)
[2019-05-21] MEDS: diphenhydrAMINE 25 MG CAP PO PRN (21:33)
[2019-05-22] MEDS: Ascorbic Acid 500 mg Chewable Tablet PO SCH ×5 (00:39→23:52)
[2019-05-22] MEDS: HYDROcodone/Acetaminophen 5/325 mg Tablet PO PRN ×2 (03:55→20:57)
[2019-05-22] MEDS: Linezolid 600 MG TAB PO SCH ×2 (09:28→20:57)
[2019-05-22] MEDS: Stress 600 With Zinc 1 TAB PO SCH (09:28)
[2019-05-22] MEDS: Famotidine 20 MG TAB PO SCH ×2 (09:30→20:57)
[2019-05-22] MEDS: Calcium Carbonate 500 MG TAB PO SCH ×2 (09:31→16:59)
[2019-05-22] MEDS: Oxybutynin 5 MG TAB PO SCH (09:31)
[2019-05-22] MEDS: Gabapentin 100 MG CAP PO SCH ×2 (09:31→20:57)
[2019-05-22] MEDS: Saccharomyces boulardii 250 MG CAP PO SCH (09:31)
[2019-05-22] MEDS: Potassium Chloride 20 MEQ TAB PO SCH ×2 (09:31→16:59)
[2019-05-22] MEDS: Furosemide 40 MG TAB PO SCH (09:31)
[2019-05-22] MEDS: Magnesium Oxide 400 MG TAB PO SCH (09:35)
[2019-05-22] MEDS: Amlodipine 5 MG TAB PO SCH (09:35)
[2019-05-22] MEDS: traMADol HCl 50 MG TAB PO PRN (12:21)
[2019-05-22] MEDS: Lisinopril 20 MG TAB PO SCH (12:24)
[2019-05-22] MEDS ORDERED: ALPRAZolam 0.5 MG TAB PO SCH (15:00)
[2019-05-22] MEDS: diphenhydrAMINE 25 MG CAP PO PRN (20:57)
[2019-05-23] MEDS: HYDROcodone/Acetaminophen 5/325 mg Tablet PO PRN ×2 (02:49→08:57)
[2019-05-23] MEDS: Ascorbic Acid 500 mg Chewable Tablet PO SCH ×3 (05:27→17:02)
[2019-05-23] MEDS: Oxybutynin 5 MG TAB PO SCH (08:54)
[2019-05-23] MEDS: Famotidine 20 MG TAB PO SCH ×2 (08:54→20:14)
[2019-05-23] MEDS: Magnesium Oxide 400 MG TAB PO SCH (08:54)
[2019-05-23] MEDS: Calcium Carbonate 500 MG TAB PO SCH ×2 (08:55→17:02)
[2019-05-23] MEDS: Furosemide 40 MG TAB PO SCH (08:55)
[2019-05-23] MEDS: Saccharomyces boulardii 250 MG CAP PO SCH (08:55)
[2019-05-23] MEDS: Lisinopril 20 MG TAB PO SCH (08:56)
[2019-05-23] MEDS: Stress 600 With Zinc 1 TAB PO SCH (08:56)
[2019-05-23] MEDS: Amlodipine 5 MG TAB PO SCH (08:56)
[2019-05-23] MEDS: Potassium Chloride 20 MEQ TAB PO SCH ×2 (08:56→17:02)
[2019-05-23] MEDS: Linezolid 600 MG TAB PO SCH ×2 (08:57→20:14)
[2019-05-23] MEDS: Gabapentin 100 MG CAP PO SCH ×2 (08:57→20:14)
[2019-05-23] MEDS: ALPRAZolam 0.5 MG TAB PO SCH (10:55)
[2019-05-23] MEDS: traMADol HCl 50 MG TAB PO PRN (20:13)
[2019-05-23] MEDS: diphenhydrAMINE 25 MG CAP PO PRN (20:22)
[2019-05-24] MEDS: Ascorbic Acid 500 mg Chewable Tablet PO SCH ×5 (00:03→23:38)
[2019-05-24] MEDS: HYDROcodone/Acetaminophen 5/325 mg Tablet PO PRN (06:03)
[2019-05-24] MEDS: Ondansetron ODT 4 MG TAB PO PRN (07:49)
[2019-05-24] MEDS: Docusate 100 MG CAP PO PRN (09:50)
[2019-05-24] MEDS: Linezolid 600 MG TAB PO SCH ×2 (09:51→20:18)
[2019-05-24] MEDS: Oxybutynin 5 MG TAB PO SCH (09:51)
[2019-05-24] MEDS: Furosemide 40 MG TAB PO SCH (09:51)
[2019-05-24] MEDS: Calcium Carbonate 500 MG TAB PO SCH ×2 (09:51→16:56)
[2019-05-24] MEDS: Magnesium Oxide 400 MG TAB PO SCH (09:51)
[2019-05-24] MEDS: Saccharomyces boulardii 250 MG CAP PO SCH (09:51)
[2019-05-24] MEDS: Lisinopril 20 MG TAB PO SCH (09:52)
[2019-05-24] MEDS: Amlodipine 5 MG TAB PO SCH (09:52)
[2019-05-24] MEDS: Famotidine 20 MG TAB PO SCH ×2 (09:52→20:18)
[2019-05-24] MEDS: Stress 600 With Zinc 1 TAB PO SCH (09:53)
[2019-05-24] MEDS: Gabapentin 100 MG CAP PO SCH ×2 (09:53→20:19)
[2019-05-24] MEDS: Potassium Chloride 20 MEQ TAB PO SCH ×2 (09:54→16:56)
[2019-05-24] MEDS: diphenhydrAMINE 25 MG CAP PO PRN ×2 (11:24→20:20)
[2019-05-24] MEDS: traMADol HCl 50 MG TAB PO PRN (20:18)
[2019-05-25] MEDS: Acetaminophen 325 MG TAB PO PRN ×3 (03:47→23:46)
[2019-05-25] MEDS: Ascorbic Acid 500 mg Chewable Tablet PO SCH ×4 (06:34→23:46)
[2019-05-25] MEDS: Furosemide 40 MG TAB PO SCH (08:29)
[2019-05-25] MEDS: Saccharomyces boulardii 250 MG CAP PO SCH (08:29)
[2019-05-25] MEDS: Linezolid 600 MG TAB PO SCH ×2 (08:30→20:43)
[2019-05-25] MEDS: Calcium Carbonate 500 MG TAB PO SCH ×2 (08:30→16:54)
[2019-05-25] MEDS: Amlodipine 5 MG TAB PO SCH (08:30)
[2019-05-25] MEDS: Stress 600 With Zinc 1 TAB PO SCH (08:30)
[2019-05-25] MEDS: Gabapentin 100 MG CAP PO SCH ×2 (08:32→20:43)
[2019-05-25] MEDS: Magnesium Oxide 400 MG TAB PO SCH (08:32)
[2019-05-25] MEDS: Lisinopril 20 MG TAB PO SCH (08:32)
[2019-05-25] MEDS: Famotidine 20 MG TAB PO SCH ×2 (08:32→20:43)
[2019-05-25] MEDS: Oxybutynin 5 MG TAB PO SCH (08:32)
[2019-05-25] MEDS: Potassium Chloride 20 MEQ TAB PO SCH ×2 (08:33→16:54)
[2019-05-25] MEDS: ALPRAZolam 0.5 MG TAB PO SCH (11:06)
[2019-05-25] MEDS: traMADol HCl 50 MG TAB PO PRN ×2 (11:08→20:44)
[2019-05-25] MEDS ORDERED: traMADol HCl 50 MG TAB PO PRN (15:17)
[2019-05-25] MEDS: diphenhydrAMINE 25 MG CAP PO PRN ×2 (15:43→20:43)
[2019-05-25] MEDS: Ondansetron ODT 4 MG TAB PO PRN (20:10)
[2019-05-26] MEDS: traMADol HCl 50 MG TAB PO PRN ×3 (04:17→20:56)
[2019-05-26] MEDS: Ascorbic Acid 500 mg Chewable Tablet PO SCH ×3 (04:17→17:07)
[2019-05-26] MEDS: Lisinopril 20 MG TAB PO SCH (08:29)
[2019-05-26] MEDS: Potassium Chloride 20 MEQ TAB PO SCH ×2 (08:29→17:07)
[2019-05-26] MEDS: Famotidine 20 MG TAB PO SCH ×2 (08:29→20:57)
[2019-05-26] MEDS: Stress 600 With Zinc 1 TAB PO SCH (08:29)
[2019-05-26] MEDS: Saccharomyces boulardii 250 MG CAP PO SCH (08:29)
[2019-05-26] MEDS: Amlodipine 5 MG TAB PO SCH (08:30)
[2019-05-26] MEDS: Oxybutynin 5 MG TAB PO SCH (08:30)
[2019-05-26] MEDS: Magnesium Oxide 400 MG TAB PO SCH (08:31)
[2019-05-26] MEDS: Calcium Carbonate 500 MG TAB PO SCH ×2 (08:31→17:07)
[2019-05-26] MEDS: Gabapentin 100 MG CAP PO SCH ×2 (08:31→20:56)
[2019-05-26] MEDS: Linezolid 600 MG TAB PO SCH ×2 (08:31→20:56)
[2019-05-26] MEDS: Furosemide 40 MG TAB PO SCH (08:31)
[2019-05-26] MEDS: Ondansetron ODT 4 MG TAB PO PRN ×2 (12:24→17:10)
[2019-05-26] MEDS: diphenhydrAMINE 25 MG CAP PO PRN (20:56)
[2019-05-27] MEDS: Ascorbic Acid 500 mg Chewable Tablet PO SCH ×5 (00:32→23:29)
[2019-05-27] MEDS: traMADol HCl 50 MG TAB PO PRN ×3 (05:06→21:24)
[2019-05-27] MEDS: Saccharomyces boulardii 250 MG CAP PO SCH (08:30)
[2019-05-27] MEDS: Amlodipine 5 MG TAB PO SCH (08:31)
[2019-05-27] MEDS: Gabapentin 100 MG CAP PO SCH ×2 (08:32→21:24)
[2019-05-27] MEDS: Famotidine 20 MG TAB PO SCH ×2 (08:33→21:24)
[2019-05-27] MEDS: Calcium Carbonate 500 MG TAB PO SCH ×2 (08:33→17:00)
[2019-05-27] MEDS: Oxybutynin 5 MG TAB PO SCH (08:33)
[2019-05-27] MEDS: Linezolid 600 MG TAB PO SCH ×2 (08:34→21:25)
[2019-05-27] MEDS: Furosemide 40 MG TAB PO SCH (08:34)
[2019-05-27] MEDS: Stress 600 With Zinc 1 TAB PO SCH (08:34)
[2019-05-27] MEDS: Potassium Chloride 20 MEQ TAB PO SCH ×2 (08:34→17:01)
[2019-05-27] MEDS: Lisinopril 20 MG TAB PO SCH (08:34)
[2019-05-27] MEDS: Magnesium Oxide 400 MG TAB PO SCH (08:34)
[2019-05-27] MEDS: Ondansetron ODT 4 MG TAB PO PRN (09:23)
[2019-05-27] MEDS: ALPRAZolam 0.5 MG TAB PO SCH (11:53)
[2019-05-27] MEDS: diphenhydrAMINE 25 MG CAP PO PRN (21:24)
[2019-05-27] MEDS: HYDROcodone/Acetaminophen 5/325 mg Tablet PO PRN (23:28)
[2019-05-28] MEDS: traMADol HCl 50 MG TAB PO PRN ×3 (03:36→23:39)
[2019-05-28] MEDS: Ascorbic Acid 500 mg Chewable Tablet PO SCH ×4 (05:40→23:40)
[2019-05-28] MEDS: Potassium Chloride 20 MEQ TAB PO SCH ×2 (08:08→17:13)
[2019-05-28] MEDS: Linezolid 600 MG TAB PO SCH ×2 (08:08→21:15)
[2019-05-28] MEDS: Famotidine 20 MG TAB PO SCH ×2 (08:08→21:15)
[2019-05-28] MEDS: Lisinopril 20 MG TAB PO SCH (08:09)
[2019-05-28] MEDS: Furosemide 40 MG TAB PO SCH (08:09)
[2019-05-28] MEDS: Gabapentin 100 MG CAP PO SCH ×2 (08:09→21:15)
[2019-05-28] MEDS: Amlodipine 5 MG TAB PO SCH (08:09)
[2019-05-28] MEDS: Magnesium Oxide 400 MG TAB PO SCH (08:09)
[2019-05-28] MEDS: Saccharomyces boulardii 250 MG CAP PO SCH (08:10)
[2019-05-28] MEDS: Stress 600 With Zinc 1 TAB PO SCH (08:10)
[2019-05-28] MEDS: Calcium Carbonate 500 MG TAB PO SCH ×2 (08:10→17:13)
[2019-05-28] MEDS: Oxybutynin 5 MG TAB PO SCH (08:10)
[2019-05-28] MEDS: Ondansetron ODT 4 MG TAB PO PRN (08:13)
[2019-05-28] MEDS: HYDROcodone/Acetaminophen 5/325 mg Tablet PO PRN (10:58)
[2019-05-28] MEDS: diphenhydrAMINE 25 MG CAP PO PRN ×2 (13:00→21:15)
[2019-05-29] MEDS: traMADol HCl 50 MG TAB PO PRN ×3 (05:31→23:54)
[2019-05-29] MEDS: Ascorbic Acid 500 mg Chewable Tablet PO SCH ×4 (05:32→23:52)
[2019-05-29] MEDS: Saccharomyces boulardii 250 MG CAP PO SCH (09:28)
[2019-05-29] MEDS: Furosemide 40 MG TAB PO SCH (09:28)
[2019-05-29] MEDS: Calcium Carbonate 500 MG TAB PO SCH ×2 (09:28→16:45)
[2019-05-29] MEDS: Docusate 100 MG CAP PO PRN (09:28)
[2019-05-29] MEDS: Lisinopril 20 MG TAB PO SCH (09:29)
[2019-05-29] MEDS: Famotidine 20 MG TAB PO SCH ×2 (09:31→21:20)
[2019-05-29] MEDS: Amlodipine 5 MG TAB PO SCH (09:31)
[2019-05-29] MEDS: Stress 600 With Zinc 1 TAB PO SCH (09:32)
[2019-05-29] MEDS: Potassium Chloride 20 MEQ TAB PO SCH ×2 (09:32→16:45)
[2019-05-29] MEDS: Oxybutynin 5 MG TAB PO SCH (09:32)
[2019-05-29] MEDS: Magnesium Oxide 400 MG TAB PO SCH (09:33)
[2019-05-29] MEDS: Gabapentin 100 MG CAP PO SCH ×2 (09:33→21:20)
[2019-05-29] MEDS: diphenhydrAMINE 25 MG CAP PO PRN (21:20)
[2019-05-30] MEDS: Ascorbic Acid 500 mg Chewable Tablet PO SCH ×3 (05:40→18:32)
[2019-05-30] MEDS: traMADol HCl 50 MG TAB PO PRN ×2 (06:17→17:02)
[2019-05-30] MEDS: Calcium Carbonate 500 MG TAB PO SCH ×2 (09:09→16:59)
[2019-05-30] MEDS: Saccharomyces boulardii 250 MG CAP PO SCH (09:10)
[2019-05-30] MEDS: Lisinopril 20 MG TAB PO SCH (09:10)
[2019-05-30] MEDS: Famotidine 20 MG TAB PO SCH ×2 (09:10→20:46)
[2019-05-30] MEDS: Oxybutynin 5 MG TAB PO SCH (09:10)
[2019-05-30] MEDS: Amlodipine 5 MG TAB PO SCH (09:10)
[2019-05-30] MEDS: Furosemide 40 MG TAB PO SCH (09:10)
[2019-05-30] MEDS: Gabapentin 100 MG CAP PO SCH ×2 (09:11→20:46)
[2019-05-30] MEDS: Docusate 100 MG CAP PO PRN (09:11)
[2019-05-30] MEDS: Stress 600 With Zinc 1 TAB PO SCH (09:11)
[2019-05-30] MEDS: Magnesium Oxide 400 MG TAB PO SCH (09:11)
[2019-05-30] MEDS: ALPRAZolam 0.5 MG TAB PO SCH (09:11)
[2019-05-30] MEDS: Potassium Chloride 20 MEQ TAB PO SCH ×2 (09:11→17:00)
[2019-05-30] MEDS: diphenhydrAMINE 25 MG CAP PO PRN (20:46)
[2019-05-31] MEDS: traMADol HCl 50 MG TAB PO PRN ×2 (00:06→06:23)
[2019-05-31] MEDS: Ascorbic Acid 500 mg Chewable Tablet PO SCH ×2 (00:06→06:23)
[2019-05-31 06:54] VITALS: TEMP 98.6
[2019-05-31] MEDS: Amlodipine 5 MG TAB PO SCH (09:00)
[2019-05-31] MEDS: Furosemide 40 MG TAB PO SCH (09:02)
[2019-05-31] MEDS: Calcium Carbonate 500 MG TAB PO SCH (09:02)
[2019-05-31] MEDS: Docusate 100 MG CAP PO PRN (09:02)
[2019-05-31] MEDS: Gabapentin 100 MG CAP PO SCH (09:03)
[2019-05-31] MEDS: Magnesium Oxide 400 MG TAB PO SCH (09:03)
[2019-05-31] MEDS: Potassium Chloride 20 MEQ TAB PO SCH (09:03)
[2019-05-31] MEDS: Stress 600 With Zinc 1 TAB PO SCH (09:03)
[2019-05-31] MEDS: Saccharomyces boulardii 250 MG CAP PO SCH (09:03)
[2019-05-31] MEDS: Oxybutynin 5 MG TAB PO SCH (09:03)
[2019-05-31] MEDS: Lisinopril 20 MG TAB PO SCH (09:03)
[2019-05-31] MEDS: Famotidine 20 MG TAB PO SCH (09:03)
[2019-05-31 09:04] VITALS: BP 93/52
--- NOTE | 2019-05-31 17:10 | DIS ---
DATE OF ADMISSION: 05/12/2019 DATE OF DISCHARGE: 05/31/2019 ADMISSION DIAGNOSES: Acute renal failure, dehydration, normocytic anemia, chronic stasis ulcers to lower extremities, hypokalemia, hypertension, and generalized weakness. PROCEDURES: Routine wound care for chronic venous stasis ulcers to bilateral lower extremities. HOSPITAL COURSE: A 69-year-old female initially presented to [facility] Emergency Department with progressive weakness with subsequent evaluation revealing acute renal failure secondary to the patient's dehydrated state. She was admitted to the floor and started on intravenous fluids accordingly. The patient's electrolyte abnormalities were corrected. The patient has had progressive worsening of chronic bilateral venous stasis ulcers involving the lower extremities for which she has most recently been followed by Dr. Cuello. Culture was obtained from these sites secondary to concern for infection. These cultures revealed a polymicrobial infection, for which the patient was provided linezolid and Levaquin. As noted, she received daily wound care; secondary to the patient's exquisite pain with wound dressing changes, she was provided alprazolam prior to her dressings, which enabled her to tolerate this much better. She has been set up with [facility] for continued wound care and we will continue her benzodiazepine treatment prior to wound dressing changes as we have here. The patient's mental status improved and she also participated with physical therapy and occupational therapy throughout her stay with noted improvement in her functional status. At this time, she is appropriate to discharge back to her home setting and she is amenable to do so. DISPOSITION: The patient was discharged home. She will have [facility] for continued care and a followup with myself in the clinic in one week. DISCHARGE MEDICATIONS: Include, 1. Alprazolam 0.5 mg prior to wound dressing changes. 2. Amlodipine 2.5 mg daily. 3. Ascorbic acid 500 mg q.6 hours. 4. Calcium carbonate 1000 mg b.i.d. 5. Lasix 40 mg daily. 6. Neurontin 100 mg b.i.d. 7. Lidocaine 1 mL topically b.i.d. as needed. 8. Lisinopril 20 mg daily. 9. Magnesium oxide 400 mg daily. 10. Multivitamin/zinc daily. 11. Oxybutynin 10 mg daily. 12. Potassium chloride 20 mEq b.i.d. 13. Tramadol 50 mg q.6 hours p.r.n. Job ID: [id number] MTDD
== END 2019-05-31 12:00 | disposition home health service (06) | DRG 684 ==
LOC: BURMED 21:37
PROVIDERS: ADMIT Family Medicine; ATTEND Family Medicine
DX: N17.9 Acute kidney failure, unspecified (principal); E86.0 Dehydration; D64.9 Anemia, unspecified; I87.2 Venous insufficiency (chronic) (peripheral); E87.6 Hypokalemia; I10 Essential (primary) hypertension; R53.1 Weakness; M81.0 Age-related osteoporosis without current pathological fracture; M19.90 Unspecified osteoarthritis, unspecified site; Z96.612 Presence of left artificial shoulder joint; Z96.611 Presence of right artificial shoulder joint; Z90.710 Acquired absence of both cervix and uterus; Z90.89 Acquired absence of other organs; Z79.899 Other long term (current) drug therapy; Z88.2 Allergy status to sulfonamides; Z91.040 Latex allergy status
CPT/HCPCS: 36415; 80053; 85025; 97602; Q0162; Q0163

== ENCOUNTER 2019-06-20 10:33 | Emergency (ER) | payer MEDICARE ==
[2019-06-20 11:23] LABS: #Basophils 0.1 thou/uL (0.0-0.2); #Eosinphils 0.3 thou/uL (0.0-0.7); #Lymphocytes 1.4 thou/uL (1.20-3.40); #Monocytes 0.5 thou/uL (0.11-0.59); #Neutrophils 4.1 thou/uL (1.40-6.50); %Eosinophils 5.2 % (0.0-10.0); %Lymphocytes 21.5 % (21.0-51.0); %Monocytes 8.4 % (0.0-10.0); %Neutrophils 63.9 % (42.0-75.0); Hemoglobin 8.7 g/dL (12.0-16.0); Mean Corpuscular HGB CONC 30.4 g/dL (32.0-36.0); Mean Corpuscular Hemoglobin 28.7 pg (27.0-31.0); Mean Corpuscular Volume 94.5 fL (78.0-98.0); Mean Platelet Volume 5.5 fL (7.4-10.4); Platelet Count 260 thou/uL (130-400); RBC Distribution Width 15.1 % (11.5-14.5); Red Blood Cell (RBC) Count 3.03 mill/uL (4.20-5.40); White Blood Cell (WBC) Count 6.4 thou/uL (4.8-10.8)
[2019-06-20 11:31] LABS: Anion Gap 13 mmol/L (10-20); BUN (Urea Nitrogen) 30 mg/dL (9.8-20.1); Calc. Creatinine Clearance 0 mL/min (70-130); Calcium 9.5 mg/dL (7.8-10.44); Carbon Dioxide 26 mmol/L (23-31); Chloride 106 mmol/L (98-107); Estimated GFR-MDRD 75; Glucose 88 mg/dL (80-115); Potassium 4.1 mmol/L (3.5-5.1); Sodium 141 mmol/L (136-145)
== END 2019-06-20 12:40 | disposition home or self-care (01) ==
LOC: BURERS 10:33
DX: L97.929 Non-pressure chronic ulcer of unspecified part of left lower leg with unspecified severity (principal); L97.919 Non-pressure chronic ulcer of unspecified part of right lower leg with unspecified severity; D64.9 Anemia, unspecified; I10 Essential (primary) hypertension; M48.00 Spinal stenosis, site unspecified; E03.9 Hypothyroidism, unspecified
CPT/HCPCS: 36415; 80048; 83880; 85025; 99283

== ENCOUNTER 2021-01-31 07:58 | Observation (INO) | payer MEDICARE ==
[2021-01-31 09:02] LABS: Bilirubin Negative (Negative); Blood, Urine Negative (Negative); Clarity Clear (Clear); Glucose, Urine (Dipstick) Negative (Negative); Ketone, Urine Negative (Negative); Leukocyte Trace (Negative); Nitrite Negative (Negative); Protein, Urine (Dipstick) 30 mg/dL (Neg-Trace); Urobilinogen 0.2 mg/dL (Less than 2); pH, Urine 5.5 (5.0-9.0)
[2021-01-31 09:03] LABS: ALT (SGPT) 22 U/L (8-55); AST (SGOT) 22 U/L (5-34); Albumin 3.7 g/dL (3.4-4.8); Alkaline Phosphatase 57 U/L (40-110); Anion Gap 17 mmol/L (10-20); BUN (Urea Nitrogen) 19 mg/dL (9.8-20.1); Bilirubin, Total 0.2 mg/dL (0.2-1.2); CK (CPK) 432 U/L (29-168); Calc. Creatinine Clearance 0 mL/min (70-130); Calcium 10.1 mg/dL (7.8-10.44); Carbon Dioxide 18 mmol/L (23-31); Chloride 103 mmol/L (98-107); Globulin 2.4 g/dL (2.4-3.5); Glucose 137 mg/dL (83-110); Potassium 4.6 mmol/L (3.5-5.1); Protein, Total 6.1 g/dL (5.8-8.1); Sodium 133 mmol/L (136-145)
[2021-01-31 09:07] LABS: Mean Corpuscular HGB CONC 33.7 g/dL (32.0-36.0); Mean Corpuscular Volume 97.6 fL (78.0-98.0); Mean Platelet Volume 6.3 fL (7.4-10.4); Platelet Count 271 thou/uL (130-400); RBC Distribution Width 11.7 % (11.5-14.5); Red Blood Cell (RBC) Count 3.95 mill/uL (4.20-5.40); White Blood Cell (WBC) Count 15.6 thou/uL (4.8-10.8)
[2021-01-31 09:08] LABS: Bacteria/HPF None Seen HPF (None Seen); RBC/HPF 0-3 HPF (0-3); Squamous Epithelial 0-3 HPF (0-3)
[2021-01-31 09:08] LABS: Band 2 % (5-11); Lymphocytes 4 % (21-51); MDiff Complete? YES; Monocytes 4 % (0-10); Neutrophil 90 % (42-75); Vacuoles SLIGHT
[2021-01-31] MEDS ORDERED: cefTRIAXone\\ROCEPHIN 1 GM VIAL ONE (09:54)
[2021-01-31] MEDS ORDERED: Ondansetron ODT 4 MG TAB PO PRN (12:12)
[2021-01-31 12:44] VITALS: BMI 24.7
[2021-01-31] MEDS: Gabapentin 100 MG CAP PO SCH ×2 (15:59→21:40)
[2021-01-31] MEDS: Furosemide 40 MG TAB PO SCH (16:00)
[2021-01-31] MEDS ORDERED: VITAMIN D2 PO SCH (21:00)
[2021-01-31] MEDS ORDERED: [UNRECOGNIZED DRUG - OTHER] PO SCH (21:00)
[2021-01-31] MEDS ORDERED: Non-Formulary Item 1 EACH (Oxybutynin Chloride [Oxybutynin Chloride Er] 10 MG Tab.Er.24) PO SCH (21:00)
[2021-01-31] MEDS ORDERED: CALCIUM CITRATE PO SCH (21:00)
[2021-01-31] MEDS: Potassium Chloride 20 MEQ TAB PO SCH (21:39)
[2021-01-31] MEDS: Enoxaparin Sodium 40 MG/0.4 ML SYRINGE SC SCH (21:40)
[2021-01-31] MEDS: Calcium Carbonate + Vit D 500 MG TAB PO SCH (21:41)
[2021-01-31] MEDS: Oxybutynin 5 MG TAB PO SCH (21:41)
[2021-01-31 21:52] LABS: SARS-CoV-2 PCR by NAA Not Detected (NotDetected)
[2021-01-31] MEDS: traMADol HCl 50 MG TAB PO PRN (22:41)
[2021-02-01 05:15] LABS: ALT (SGPT) 30 U/L (8-55); AST (SGOT) 45 U/L (5-34); Albumin 3.4 g/dL (3.4-4.8); Alkaline Phosphatase 52 U/L (40-110); Anion Gap 17 mmol/L (10-20); BUN (Urea Nitrogen) 39 mg/dL (9.8-20.1); Bilirubin, Total 0.3 mg/dL (0.2-1.2); CK (CPK) 948 U/L (29-168); Calc. Creatinine Clearance 63 mL/min (70-130); Carbon Dioxide 18 mmol/L (23-31); Chloride 112 mmol/L (98-107); Globulin 2.4 g/dL (2.4-3.5); Glucose 99 mg/dL (83-110); Potassium 3.7 mmol/L (3.5-5.1); Protein, Total 5.8 g/dL (5.8-8.1); Sodium 143 mmol/L (136-145)
[2021-02-01 05:34] LABS: #Eosinphils 0.1 thou/uL (0.0-0.7); #Lymphocytes 1.1 thou/uL (1.20-3.40); #Monocytes 0.6 thou/uL (0.11-0.59); #Neutrophils 6.9 thou/uL (1.40-6.50); %Basophils 0.4 % (0.0-1.0); %Eosinophils 0.7 % (0.0-10.0); %Lymphocytes 12.2 % (21.0-51.0); %Monocytes 7.2 % (0.0-10.0); %Neutrophils 79.5 % (42.0-75.0); Hemoglobin 11.7 g/dL (12.0-16.0); Mean Corpuscular HGB CONC 33.6 g/dL (32.0-36.0); Mean Corpuscular Volume 98.2 fL (78.0-98.0); Mean Platelet Volume 6.5 fL (7.4-10.4); Platelet Count 260 thou/uL (130-400); RBC Distribution Width 11.8 % (11.5-14.5); Red Blood Cell (RBC) Count 3.55 mill/uL (4.20-5.40); White Blood Cell (WBC) Count 8.7 thou/uL (4.8-10.8)
[2021-02-01] MEDS ORDERED: Sodium Chloride 0.9% 1,000 ML IV SCH (07:30)
[2021-02-01] MEDS: Gabapentin 100 MG CAP PO SCH ×3 (08:44→20:58)
[2021-02-01] MEDS: Furosemide 40 MG TAB PO SCH ×2 (08:46→15:42)
[2021-02-01] MEDS: Amlodipine 5 MG TAB PO SCH (08:46)
[2021-02-01] MEDS: traMADol HCl 50 MG TAB PO PRN ×2 (08:47→16:08)
[2021-02-01] MEDS: Potassium Chloride 20 MEQ TAB PO SCH ×2 (08:50→20:55)
[2021-02-01] MEDS: Ascorbic Acid 500 mg Chewable Tablet PO SCH (08:51)
[2021-02-01] MEDS: Lisinopril 20 MG TAB PO SCH (08:52)
[2021-02-01] MEDS: Calcium Carbonate + Vit D 500 MG TAB PO SCH ×2 (08:53→20:55)
[2021-02-01] MEDS: Oxybutynin 5 MG TAB PO SCH ×2 (08:53→21:00)
[2021-02-01] MEDS: [UNRECOGNIZED DRUG - REMARK] PO SCH (08:54)
[2021-02-01] MEDS ORDERED: FLU VACC QS2020-21(65YR UP)/PF 240 MCG/0.7 ML SYRINGE IM ONE (09:00)
[2021-02-01] MEDS ORDERED: Non-Formulary Item 1 EACH (Lisinopril [Lisinopril] 40 MG Tablet) PO SCH (09:00)
[2021-02-01] MEDS ORDERED: Furosemide 40 MG TAB PO SCH (09:00)
[2021-02-01] MEDS ORDERED: [UNRECOGNIZED DRUG - REMARK] PO SCH (09:00)
[2021-02-01] MEDS: Enoxaparin Sodium 40 MG/0.4 ML SYRINGE SC SCH (21:00)
[2021-02-02] MEDS: traMADol HCl 50 MG TAB PO PRN ×3 (01:13→17:36)
[2021-02-02 05:34] LABS: #Basophils 0.1 thou/uL (0.0-0.2); #Eosinphils 0.1 thou/uL (0.0-0.7); #Lymphocytes 1.6 thou/uL (1.20-3.40); #Monocytes 0.6 thou/uL (0.11-0.59); #Neutrophils 4.8 thou/uL (1.40-6.50); %Basophils 0.7 % (0.0-1.0); %Eosinophils 1.2 % (0.0-10.0); %Lymphocytes 21.8 % (21.0-51.0); %Monocytes 8.9 % (0.0-10.0); %Neutrophils 67.4 % (42.0-75.0); Hemoglobin 11.4 g/dL (12.0-16.0); Mean Corpuscular HGB CONC 34.8 g/dL (32.0-36.0); Mean Corpuscular Hemoglobin 33.2 pg (27.0-31.0); Mean Corpuscular Volume 95.3 fL (78.0-98.0); Mean Platelet Volume 5.9 fL (7.4-10.4); Platelet Count 277 thou/uL (130-400); RBC Distribution Width 11.4 % (11.5-14.5); Red Blood Cell (RBC) Count 3.44 mill/uL (4.20-5.40); White Blood Cell (WBC) Count 7.2 thou/uL (4.8-10.8)
[2021-02-02 05:45] LABS: ALT (SGPT) 27 U/L (8-55); AST (SGOT) 28 U/L (5-34); Albumin 3.2 g/dL (3.4-4.8); Alkaline Phosphatase 48 U/L (40-110); Anion Gap 16 mmol/L (10-20); BUN (Urea Nitrogen) 13 mg/dL (9.8-20.1); Bilirubin, Total 0.3 mg/dL (0.2-1.2); Calc. Creatinine Clearance 73 mL/min (70-130); Carbon Dioxide 22 mmol/L (23-31); Chloride 110 mmol/L (98-107); Globulin 2.3 g/dL (2.4-3.5); Glucose 102 mg/dL (83-110); Potassium 3.5 mmol/L (3.5-5.1); Protein, Total 5.5 g/dL (5.8-8.1); Sodium 144 mmol/L (136-145)
[2021-02-02] MEDS: Lisinopril 20 MG TAB PO SCH (08:18)
[2021-02-02] MEDS: Ascorbic Acid 500 mg Chewable Tablet PO SCH (08:20)
[2021-02-02] MEDS: Oxybutynin 5 MG TAB PO SCH ×2 (08:20→21:46)
[2021-02-02] MEDS: Calcium Carbonate + Vit D 500 MG TAB PO SCH ×2 (08:21→21:45)
[2021-02-02] MEDS: Amlodipine 5 MG TAB PO SCH (08:21)
[2021-02-02] MEDS: Furosemide 40 MG TAB PO SCH ×2 (08:22→14:47)
[2021-02-02] MEDS: Gabapentin 100 MG CAP PO SCH ×3 (08:22→21:46)
[2021-02-02] MEDS: Potassium Chloride 20 MEQ TAB PO SCH ×2 (08:23→21:46)
[2021-02-02] MEDS: [UNRECOGNIZED DRUG - REMARK] PO SCH (08:24)
[2021-02-02] MEDS: Polyethylene Glycol 3350 17 GM Packet PO PRN (18:05)
[2021-02-02] MEDS: Enoxaparin Sodium 40 MG/0.4 ML SYRINGE SC SCH (21:47)
[2021-02-03] MEDS: traMADol HCl 50 MG TAB PO PRN ×3 (02:33→17:31)
[2021-02-03] MEDS: Polyethylene Glycol 3350 17 GM Packet PO PRN (09:05)
[2021-02-03] MEDS: Gabapentin 100 MG CAP PO SCH ×3 (09:05→20:36)
[2021-02-03] MEDS: Potassium Chloride 20 MEQ TAB PO SCH ×2 (09:06→20:37)
[2021-02-03] MEDS: Amlodipine 5 MG TAB PO SCH (09:06)
[2021-02-03] MEDS: Furosemide 40 MG TAB PO SCH ×2 (09:08→14:45)
[2021-02-03] MEDS: Lisinopril 20 MG TAB PO SCH (09:09)
[2021-02-03] MEDS: Ascorbic Acid 500 mg Chewable Tablet PO SCH (09:09)
[2021-02-03] MEDS: Oxybutynin 5 MG TAB PO SCH ×2 (09:09→20:36)
[2021-02-03] MEDS: [UNRECOGNIZED DRUG - REMARK] PO SCH (09:10)
[2021-02-03] MEDS: Calcium Carbonate + Vit D 500 MG TAB PO SCH ×2 (09:10→20:36)
[2021-02-03] MEDS: Enoxaparin Sodium 40 MG/0.4 ML SYRINGE SC SCH (20:37)
[2021-02-04] MEDS: traMADol HCl 50 MG TAB PO PRN (01:31)
[2021-02-04 05:11] LABS: #Basophils 0.1 thou/uL (0.0-0.2); #Eosinphils 0.1 thou/uL (0.0-0.7); #Lymphocytes 2.1 thou/uL (1.20-3.40); #Monocytes 1.2 thou/uL (0.11-0.59); %Basophils 1.5 % (0.0-1.0); %Lymphocytes 21.8 % (21.0-51.0); %Monocytes 12.3 % (0.0-10.0); %Neutrophils 63.3 % (42.0-75.0); Mean Corpuscular HGB CONC 34.5 g/dL (32.0-36.0); Mean Corpuscular Hemoglobin 33.2 pg (27.0-31.0); Mean Corpuscular Volume 96.1 fL (78.0-98.0); Mean Platelet Volume 5.8 fL (7.4-10.4); Platelet Count 379 thou/uL (130-400); RBC Distribution Width 11.5 % (11.5-14.5); Red Blood Cell (RBC) Count 3.91 mill/uL (4.20-5.40); White Blood Cell (WBC) Count 9.5 thou/uL (4.8-10.8)
[2021-02-04 05:18] LABS: Anion Gap 16 mmol/L (10-20); BUN (Urea Nitrogen) 18 mg/dL (9.8-20.1); Calc. Creatinine Clearance 63 mL/min (70-130); Carbon Dioxide 27 mmol/L (23-31); Chloride 99 mmol/L (98-107); Glucose 115 mg/dL (83-110); Potassium 4.4 mmol/L (3.5-5.1); Sodium 138 mmol/L (136-145)
[2021-02-04 05:29] LABS: Calcium 9.8 mg/dL (7.8-10.44)
[2021-02-04 05:48] VITALS: TEMP 98.1
[2021-02-04] MEDS ORDERED: Acetaminophen/Codeine 30-300mg Tablet PO PRN (06:39)
[2021-02-04] MEDS: Lisinopril 20 MG TAB PO SCH (08:30)
[2021-02-04] MEDS: Oxybutynin 5 MG TAB PO SCH (08:30)
[2021-02-04] MEDS: Potassium Chloride 20 MEQ TAB PO SCH (08:31)
[2021-02-04] MEDS: Furosemide 40 MG TAB PO SCH ×2 (08:31→13:11)
[2021-02-04] MEDS: Ascorbic Acid 500 mg Chewable Tablet PO SCH (08:31)
[2021-02-04] MEDS: Gabapentin 100 MG CAP PO SCH ×2 (08:32→14:25)
[2021-02-04] MEDS: Amlodipine 5 MG TAB PO SCH (08:33)
[2021-02-04] MEDS: [UNRECOGNIZED DRUG - REMARK] PO SCH (08:35)
[2021-02-04] MEDS: Calcium Carbonate + Vit D 500 MG TAB PO SCH (08:35)
[2021-02-04 08:36] VITALS: BP 116/58
[2021-02-04] MEDS ORDERED: Docusate Sodium 100 MG/10 ML UDCUP PO PRN (11:10)
[2021-02-05] MEDS ORDERED: Polyethylene Glycol 3350 17 GM Packet PO SCH (09:00)
== END 2021-02-04 14:34 | disposition swing bed (61) ==
LOC: BURERS 07:58 → UNDOADMOB 10:48 → BURMED 10:48 → OBSVTOIN 10:48 → INTOOBSV 10:48 → OBSVTOIN 02-04 03:00 → BURMED 02-04 03:00 → INTOOBSV 02-04 03:00 → UNDODISIN 02-04 14:34
PROVIDERS: ADMIT Family Medicine; ATTEND Family Medicine
DX: E86.0 Dehydration (principal); E87.1 Hypo-osmolality and hyponatremia; N39.0 Urinary tract infection, site not specified; D72.829 Elevated white blood cell count, unspecified; N17.9 Acute kidney failure, unspecified; R53.1 Weakness; I10 Essential (primary) hypertension; M89.8X8 Other specified disorders of bone, other site; Z66 Do not resuscitate; Z91.81 History of falling; Z79.83 Long term (current) use of bisphosphonates; Z79.899 Other long term (current) drug therapy; Z88.2 Allergy status to sulfonamides; Z88.5 Allergy status to narcotic agent; Z91.018 Allergy to other foods; Z91.040 Latex allergy status; Z20.822 Contact with and (suspected) exposure to COVID-19
CPT/HCPCS: 36415; 51701; 70450; 71045; 80048; 80053; 81003; 81015; 82550; 83880; 84484; 85025; 87040; 87635; 93005; 94760; 96366; 96367; 96372; 96374; 96376; G0378; J0696; J1650; J1956; J7050; Q0162; U0003; U0005

== ENCOUNTER 2021-02-04 14:37 | Inpatient (IN) | payer MEDICARE ==
[2021-02-04] MEDS ORDERED: Docusate Sodium 100 MG/10 ML UDCUP PO PRN (15:13)
[2021-02-04] MEDS ORDERED: Ondansetron ODT 4 MG TAB PO PRN (15:14)
[2021-02-04] MEDS: Acetaminophen/Codeine 30-300mg Tablet PO PRN (21:37)
[2021-02-04] MEDS: Gabapentin 100 MG CAP PO SCH (21:38)
[2021-02-04] MEDS: Oxybutynin 5 MG TAB PO SCH (21:39)
[2021-02-04] MEDS: Calcium Carbonate + Vit D 500 MG TAB PO SCH (21:39)
[2021-02-04] MEDS: Enoxaparin Sodium 40 MG/0.4 ML SYRINGE SC SCH (21:40)
[2021-02-04] MEDS: Potassium Chloride 20 MEQ TAB PO SCH (21:40)
[2021-02-05] MEDS: Acetaminophen/Codeine 30-300mg Tablet PO PRN ×2 (08:50→17:41)
[2021-02-05] MEDS: Gabapentin 100 MG CAP PO SCH ×3 (08:51→21:19)
[2021-02-05] MEDS: Amlodipine 5 MG TAB PO SCH (08:52)
[2021-02-05] MEDS: Calcium Carbonate + Vit D 500 MG TAB PO SCH ×2 (08:54→21:20)
[2021-02-05] MEDS: Potassium Chloride 20 MEQ TAB PO SCH ×2 (08:54→17:37)
[2021-02-05] MEDS: Oxybutynin 5 MG TAB PO SCH ×2 (08:54→21:21)
[2021-02-05] MEDS: Lisinopril 20 MG TAB PO SCH (08:55)
[2021-02-05] MEDS: Furosemide 40 MG TAB PO SCH ×2 (08:56→13:08)
[2021-02-05] MEDS: Ascorbic Acid 500 mg Chewable Tablet PO SCH (08:56)
[2021-02-05] MEDS: Polyethylene Glycol 3350 17 GM Packet PO SCH (08:57)
[2021-02-05] MEDS: Enoxaparin Sodium 40 MG/0.4 ML SYRINGE SC SCH (21:19)
[2021-02-06] MEDS: Acetaminophen/Codeine 30-300mg Tablet PO PRN ×3 (03:44→22:28)
[2021-02-06] MEDS: Calcium Carbonate + Vit D 500 MG TAB PO SCH ×2 (09:36→22:00)
[2021-02-06] MEDS: Potassium Chloride 20 MEQ TAB PO SCH ×2 (09:37→18:02)
[2021-02-06] MEDS: Gabapentin 100 MG CAP PO SCH ×3 (09:37→22:00)
[2021-02-06] MEDS: Oxybutynin 5 MG TAB PO SCH ×2 (09:38→22:00)
[2021-02-06] MEDS: Amlodipine 5 MG TAB PO SCH (09:38)
[2021-02-06] MEDS: Ascorbic Acid 500 mg Chewable Tablet PO SCH (09:42)
[2021-02-06] MEDS: Furosemide 40 MG TAB PO SCH ×2 (09:42→13:55)
[2021-02-06] MEDS: Polyethylene Glycol 3350 17 GM Packet PO SCH (09:43)
[2021-02-06] MEDS: Lisinopril 20 MG TAB PO SCH (09:47)
[2021-02-06] MEDS: Enoxaparin Sodium 40 MG/0.4 ML SYRINGE SC SCH (22:00)
[2021-02-07] MEDS: Acetaminophen/Codeine 30-300mg Tablet PO PRN ×2 (06:19→14:52)
[2021-02-07] MEDS: Gabapentin 100 MG CAP PO SCH ×3 (09:28→21:07)
[2021-02-07] MEDS: Amlodipine 5 MG TAB PO SCH (09:29)
[2021-02-07] MEDS: Furosemide 40 MG TAB PO SCH ×2 (09:29→14:53)
[2021-02-07] MEDS: Potassium Chloride 20 MEQ TAB PO SCH ×2 (09:29→17:22)
[2021-02-07] MEDS: Lisinopril 20 MG TAB PO SCH (09:32)
[2021-02-07] MEDS: Ascorbic Acid 500 mg Chewable Tablet PO SCH (09:32)
[2021-02-07] MEDS: Oxybutynin 5 MG TAB PO SCH ×2 (09:33→21:10)
[2021-02-07] MEDS: Calcium Carbonate + Vit D 500 MG TAB PO SCH ×2 (09:33→21:09)
[2021-02-07] MEDS: Polyethylene Glycol 3350 17 GM Packet PO SCH (09:34)
[2021-02-07] MEDS: Enoxaparin Sodium 40 MG/0.4 ML SYRINGE SC SCH (21:10)
[2021-02-08] MEDS: Acetaminophen/Codeine 30-300mg Tablet PO PRN ×3 (04:56→21:43)
[2021-02-08] MEDS: Ascorbic Acid 500 mg Chewable Tablet PO SCH (08:59)
[2021-02-08] MEDS: Oxybutynin 5 MG TAB PO SCH ×2 (09:00→21:36)
[2021-02-08] MEDS: Potassium Chloride 20 MEQ TAB PO SCH ×2 (09:00→16:13)
[2021-02-08] MEDS: Gabapentin 100 MG CAP PO SCH ×3 (09:01→21:37)
[2021-02-08] MEDS: Furosemide 40 MG TAB PO SCH ×2 (09:02→16:14)
[2021-02-08] MEDS: Lisinopril 20 MG TAB PO SCH (09:02)
[2021-02-08] MEDS: Amlodipine 5 MG TAB PO SCH (09:03)
[2021-02-08] MEDS: Calcium Carbonate + Vit D 500 MG TAB PO SCH ×2 (09:03→21:37)
[2021-02-08] MEDS: Polyethylene Glycol 3350 17 GM Packet PO SCH (10:19)
[2021-02-08] MEDS: Enoxaparin Sodium 40 MG/0.4 ML SYRINGE SC SCH (21:37)
[2021-02-09] MEDS: Acetaminophen/Codeine 30-300mg Tablet PO PRN ×3 (06:17→22:18)
[2021-02-09] MEDS: Gabapentin 100 MG CAP PO SCH ×3 (10:20→22:08)
[2021-02-09] MEDS: Furosemide 40 MG TAB PO SCH ×2 (10:21→14:41)
[2021-02-09] MEDS: Potassium Chloride 20 MEQ TAB PO SCH ×2 (10:21→18:42)
[2021-02-09] MEDS: Calcium Carbonate + Vit D 500 MG TAB PO SCH ×2 (10:22→22:07)
[2021-02-09] MEDS: Oxybutynin 5 MG TAB PO SCH ×2 (10:22→22:07)
[2021-02-09] MEDS: Ascorbic Acid 500 mg Chewable Tablet PO SCH (10:22)
[2021-02-09] MEDS: Polyethylene Glycol 3350 17 GM Packet PO SCH (10:24)
[2021-02-09] MEDS: Lisinopril 20 MG TAB PO SCH (10:28)
[2021-02-09] MEDS: Enoxaparin Sodium 40 MG/0.4 ML SYRINGE SC SCH (22:08)
[2021-02-10] MEDS: Acetaminophen/Codeine 30-300mg Tablet PO PRN ×2 (08:34→17:28)
[2021-02-10] MEDS: Gabapentin 100 MG CAP PO SCH ×3 (08:35→21:06)
[2021-02-10] MEDS: Lisinopril 20 MG TAB PO SCH (08:35)
[2021-02-10] MEDS: Furosemide 40 MG TAB PO SCH ×2 (08:36→14:11)
[2021-02-10] MEDS: Potassium Chloride 20 MEQ TAB PO SCH ×2 (08:36→17:28)
[2021-02-10] MEDS: Ascorbic Acid 500 mg Chewable Tablet PO SCH (08:36)
[2021-02-10] MEDS: Oxybutynin 5 MG TAB PO SCH ×2 (08:36→21:06)
[2021-02-10] MEDS: Calcium Carbonate + Vit D 500 MG TAB PO SCH ×2 (08:36→21:06)
[2021-02-10] MEDS: Polyethylene Glycol 3350 17 GM Packet PO SCH (08:37)
[2021-02-10] MEDS: Enoxaparin Sodium 40 MG/0.4 ML SYRINGE SC SCH (21:07)
[2021-02-11] MEDS: Acetaminophen/Codeine 30-300mg Tablet PO PRN ×2 (05:00→14:20)
[2021-02-11 06:10] LABS: ALT (SGPT) 16 U/L (8-55); AST (SGOT) 14 U/L (5-34); Albumin 3.3 g/dL (3.4-4.8); Alkaline Phosphatase 46 U/L (40-110); Anion Gap 15 mmol/L (10-20); BUN (Urea Nitrogen) 38 mg/dL (9.8-20.1); Bilirubin, Total 0.3 mg/dL (0.2-1.2); Calc. Creatinine Clearance 50 mL/min (70-130); Calcium 10.5 mg/dL (7.8-10.44); Carbon Dioxide 30 mmol/L (23-31); Chloride 97 mmol/L (98-107); Globulin 2.4 g/dL (2.4-3.5); Glucose 100 mg/dL (83-110); Potassium 4.5 mmol/L (3.5-5.1); Protein, Total 5.7 g/dL (5.8-8.1); Sodium 137 mmol/L (136-145)
[2021-02-11 06:53] LABS: #Basophils 0.1 thou/uL (0.0-0.2); #Eosinphils 0.2 thou/uL (0.0-0.7); #Lymphocytes 1.5 thou/uL (1.20-3.40); #Monocytes 0.9 thou/uL (0.11-0.59); #Neutrophils 5.2 thou/uL (1.40-6.50); %Basophils 1.4 % (0.0-1.0); %Lymphocytes 19.5 % (21.0-51.0); %Monocytes 11.3 % (0.0-10.0); %Neutrophils 65.8 % (42.0-75.0); Hemoglobin 10.5 g/dL (12.0-16.0); Mean Corpuscular HGB CONC 33.9 g/dL (32.0-36.0); Mean Corpuscular Hemoglobin 33.3 pg (27.0-31.0); Mean Corpuscular Volume 98.3 fL (78.0-98.0); Mean Platelet Volume 5.9 fL (7.4-10.4); Platelet Count 328 thou/uL (130-400); RBC Distribution Width 11.5 % (11.5-14.5); Red Blood Cell (RBC) Count 3.16 mill/uL (4.20-5.40); White Blood Cell (WBC) Count 7.9 thou/uL (4.8-10.8)
[2021-02-11] MEDS ORDERED: Furosemide 40 MG TAB PO SCH (07:11)
[2021-02-11] MEDS ORDERED: Potassium Chloride 20 MEQ TAB PO SCH (07:11)
[2021-02-11] MEDS: Ascorbic Acid 500 mg Chewable Tablet PO SCH (10:26)
[2021-02-11] MEDS: Potassium Chloride 10 MEQ TAB PO SCH ×2 (10:26→17:46)
[2021-02-11] MEDS: Lisinopril 20 MG TAB PO SCH (10:27)
[2021-02-11] MEDS: Oxybutynin 5 MG TAB PO SCH ×2 (10:27→21:07)
[2021-02-11] MEDS: Calcium Carbonate + Vit D 500 MG TAB PO SCH ×2 (10:27→21:07)
[2021-02-11] MEDS: Furosemide 20 MG TAB PO SCH ×2 (10:28→14:20)
[2021-02-11] MEDS: Gabapentin 100 MG CAP PO SCH ×3 (10:28→21:08)
[2021-02-11] MEDS: Polyethylene Glycol 3350 17 GM Packet PO SCH (10:30)
[2021-02-11] MEDS: Enoxaparin Sodium 40 MG/0.4 ML SYRINGE SC SCH (21:08)
[2021-02-12] MEDS: Acetaminophen/Codeine 30-300mg Tablet PO PRN ×2 (05:34→15:47)
[2021-02-12] MEDS ORDERED: Lisinopril 10 MG TAB PO SCH (09:00)
[2021-02-12] MEDS: Gabapentin 100 MG CAP PO SCH ×3 (09:08→20:40)
[2021-02-12] MEDS: Oxybutynin 5 MG TAB PO SCH ×2 (09:09→20:41)
[2021-02-12] MEDS: Potassium Chloride 10 MEQ TAB PO SCH ×2 (09:09→15:48)
[2021-02-12] MEDS: Calcium Carbonate + Vit D 500 MG TAB PO SCH ×2 (09:09→20:41)
[2021-02-12] MEDS: Furosemide 20 MG TAB PO SCH ×2 (09:10→15:46)
[2021-02-12] MEDS: Ascorbic Acid 500 mg Chewable Tablet PO SCH (09:10)
[2021-02-12] MEDS: Polyethylene Glycol 3350 17 GM Packet PO SCH (09:11)
[2021-02-12] MEDS: Enoxaparin Sodium 40 MG/0.4 ML SYRINGE SC SCH (20:41)
[2021-02-13] MEDS: Acetaminophen/Codeine 30-300mg Tablet PO PRN ×2 (03:13→14:27)
[2021-02-13] MEDS: Gabapentin 100 MG CAP PO SCH ×3 (09:00→21:30)
[2021-02-13] MEDS: Polyethylene Glycol 3350 17 GM Packet PO SCH (09:01)
[2021-02-13] MEDS: Ascorbic Acid 500 mg Chewable Tablet PO SCH (09:01)
[2021-02-13] MEDS: Calcium Carbonate + Vit D 500 MG TAB PO SCH ×2 (09:02→21:31)
[2021-02-13] MEDS: Oxybutynin 5 MG TAB PO SCH ×2 (09:03→21:31)
[2021-02-13] MEDS: Potassium Chloride 10 MEQ TAB PO SCH ×2 (09:03→16:36)
[2021-02-13] MEDS: Furosemide 20 MG TAB PO SCH ×2 (09:03→14:28)
[2021-02-13 10:44] VITALS: BMI 23.1
[2021-02-13] MEDS: Enoxaparin Sodium 40 MG/0.4 ML SYRINGE SC SCH (21:31)
[2021-02-14] MEDS: Acetaminophen/Codeine 30-300mg Tablet PO PRN ×3 (00:54→20:37)
[2021-02-14] MEDS: Gabapentin 100 MG CAP PO SCH ×3 (09:22→20:36)
[2021-02-14] MEDS: Calcium Carbonate + Vit D 500 MG TAB PO SCH ×2 (09:23→20:37)
[2021-02-14] MEDS: Oxybutynin 5 MG TAB PO SCH ×2 (09:23→20:37)
[2021-02-14] MEDS: Ascorbic Acid 500 mg Chewable Tablet PO SCH (09:24)
[2021-02-14] MEDS: Furosemide 20 MG TAB PO SCH ×2 (09:25→14:15)
[2021-02-14] MEDS: Potassium Chloride 10 MEQ TAB PO SCH ×2 (09:25→17:13)
[2021-02-14] MEDS: Polyethylene Glycol 3350 17 GM Packet PO SCH (09:26)
[2021-02-14] MEDS: Enoxaparin Sodium 40 MG/0.4 ML SYRINGE SC SCH (20:38)
[2021-02-15] MEDS: Acetaminophen/Codeine 30-300mg Tablet PO PRN ×2 (05:36→17:06)
[2021-02-15] MEDS: Polyethylene Glycol 3350 17 GM Packet PO SCH (08:30)
[2021-02-15] MEDS: Oxybutynin 5 MG TAB PO SCH ×2 (08:31→20:43)
[2021-02-15] MEDS: Furosemide 20 MG TAB PO SCH ×2 (08:31→15:11)
[2021-02-15] MEDS: Ascorbic Acid 500 mg Chewable Tablet PO SCH (08:31)
[2021-02-15] MEDS: Calcium Carbonate + Vit D 500 MG TAB PO SCH ×2 (08:32→20:43)
[2021-02-15] MEDS: Gabapentin 100 MG CAP PO SCH ×3 (08:33→20:42)
[2021-02-15] MEDS: Potassium Chloride 10 MEQ TAB PO SCH ×2 (08:34→17:03)
[2021-02-15] MEDS: Enoxaparin Sodium 40 MG/0.4 ML SYRINGE SC SCH (20:43)
[2021-02-16] MEDS: Acetaminophen/Codeine 30-300mg Tablet PO PRN ×2 (05:39→13:38)
[2021-02-16] MEDS: Gabapentin 100 MG CAP PO SCH ×3 (09:45→20:38)
[2021-02-16] MEDS: Calcium Carbonate + Vit D 500 MG TAB PO SCH ×2 (09:59→20:38)
[2021-02-16] MEDS: Polyethylene Glycol 3350 17 GM Packet PO SCH (09:59)
[2021-02-16] MEDS: Oxybutynin 5 MG TAB PO SCH ×2 (09:59→20:38)
[2021-02-16] MEDS: Ascorbic Acid 500 mg Chewable Tablet PO SCH (09:59)
[2021-02-16] MEDS: Furosemide 20 MG TAB PO SCH ×2 (10:00→13:39)
[2021-02-16] MEDS: Potassium Chloride 10 MEQ TAB PO SCH ×2 (10:02→17:00)
[2021-02-16] MEDS: Enoxaparin Sodium 40 MG/0.4 ML SYRINGE SC SCH (20:39)
[2021-02-17] MEDS: Acetaminophen/Codeine 30-300mg Tablet PO PRN ×3 (00:52→17:59)
[2021-02-17] MEDS: Ascorbic Acid 500 mg Chewable Tablet PO SCH (09:40)
[2021-02-17] MEDS: Calcium Carbonate + Vit D 500 MG TAB PO SCH ×2 (09:41→20:38)
[2021-02-17] MEDS: Oxybutynin 5 MG TAB PO SCH (09:41)
[2021-02-17] MEDS: Potassium Chloride 10 MEQ TAB PO SCH ×2 (09:42→17:58)
[2021-02-17] MEDS: Furosemide 20 MG TAB PO SCH ×2 (09:42→14:51)
[2021-02-17] MEDS: Gabapentin 100 MG CAP PO SCH ×3 (09:42→20:38)
[2021-02-17] MEDS: Polyethylene Glycol 3350 17 GM Packet PO SCH (09:43)
[2021-02-17] MEDS: Enoxaparin Sodium 40 MG/0.4 ML SYRINGE SC SCH (20:39)
[2021-02-18] MEDS: Acetaminophen/Codeine 30-300mg Tablet PO PRN ×2 (07:55→16:20)
[2021-02-18] MEDS: Furosemide 20 MG TAB PO SCH ×2 (07:56→15:08)
[2021-02-18] MEDS: Gabapentin 100 MG CAP PO SCH ×3 (07:56→20:19)
[2021-02-18] MEDS: Potassium Chloride 10 MEQ TAB PO SCH ×2 (07:57→16:20)
[2021-02-18] MEDS: Calcium Carbonate + Vit D 500 MG TAB PO SCH ×2 (07:57→20:20)
[2021-02-18] MEDS: Ascorbic Acid 500 mg Chewable Tablet PO SCH (07:57)
[2021-02-18] MEDS: Polyethylene Glycol 3350 17 GM Packet PO SCH (07:58)
[2021-02-18] MEDS: Enoxaparin Sodium 40 MG/0.4 ML SYRINGE SC SCH (20:20)
[2021-02-19] MEDS: Gabapentin 100 MG CAP PO SCH ×3 (08:13→21:32)
[2021-02-19] MEDS: Potassium Chloride 10 MEQ TAB PO SCH ×2 (08:13→16:15)
[2021-02-19] MEDS: Furosemide 20 MG TAB PO SCH ×2 (08:14→13:56)
[2021-02-19] MEDS: Ascorbic Acid 500 mg Chewable Tablet PO SCH (08:14)
[2021-02-19] MEDS: Acetaminophen/Codeine 30-300mg Tablet PO PRN ×2 (08:14→16:15)
[2021-02-19] MEDS: Calcium Carbonate + Vit D 500 MG TAB PO SCH ×2 (08:14→21:32)
[2021-02-19] MEDS: Polyethylene Glycol 3350 17 GM Packet PO SCH (08:15)
[2021-02-19] MEDS: Enoxaparin Sodium 40 MG/0.4 ML SYRINGE SC SCH (21:31)
[2021-02-20] MEDS: Acetaminophen/Codeine 30-300mg Tablet PO PRN ×2 (05:13→14:27)
[2021-02-20] MEDS: Ascorbic Acid 500 mg Chewable Tablet PO SCH (08:53)
[2021-02-20] MEDS: Polyethylene Glycol 3350 17 GM Packet PO SCH (08:53)
[2021-02-20] MEDS: Gabapentin 100 MG CAP PO SCH ×3 (08:54→20:46)
[2021-02-20] MEDS: Calcium Carbonate + Vit D 500 MG TAB PO SCH ×2 (08:55→20:44)
[2021-02-20] MEDS: Potassium Chloride 10 MEQ TAB PO SCH ×2 (08:56→17:40)
[2021-02-20] MEDS: Furosemide 20 MG TAB PO SCH ×2 (08:56→14:28)
[2021-02-20] MEDS: Enoxaparin Sodium 40 MG/0.4 ML SYRINGE SC SCH (20:43)
[2021-02-21] MEDS: Acetaminophen/Codeine 30-300mg Tablet PO PRN ×2 (07:47→16:42)
[2021-02-21] MEDS: Potassium Chloride 10 MEQ TAB PO SCH ×2 (07:53→16:43)
[2021-02-21] MEDS: Ascorbic Acid 500 mg Chewable Tablet PO SCH (08:14)
[2021-02-21] MEDS: Calcium Carbonate + Vit D 500 MG TAB PO SCH ×2 (08:15→20:14)
[2021-02-21] MEDS: Furosemide 20 MG TAB PO SCH ×2 (08:15→13:43)
[2021-02-21] MEDS: Gabapentin 100 MG CAP PO SCH ×3 (08:15→20:15)
[2021-02-21] MEDS: Polyethylene Glycol 3350 17 GM Packet PO SCH (08:21)
[2021-02-21] MEDS: Enoxaparin Sodium 40 MG/0.4 ML SYRINGE SC SCH (20:15)
[2021-02-22] MEDS: Acetaminophen/Codeine 30-300mg Tablet PO PRN ×2 (07:44→16:48)
[2021-02-22] MEDS: Calcium Carbonate + Vit D 500 MG TAB PO SCH ×2 (09:28→20:39)
[2021-02-22] MEDS: Potassium Chloride 10 MEQ TAB PO SCH ×2 (09:29→16:48)
[2021-02-22] MEDS: Ascorbic Acid 500 mg Chewable Tablet PO SCH (09:29)
[2021-02-22] MEDS: Furosemide 20 MG TAB PO SCH ×2 (09:31→14:21)
[2021-02-22] MEDS: Gabapentin 100 MG CAP PO SCH ×3 (09:32→20:39)
[2021-02-22] MEDS: Polyethylene Glycol 3350 17 GM Packet PO SCH (09:33)
[2021-02-22] MEDS: Enoxaparin Sodium 40 MG/0.4 ML SYRINGE SC SCH (20:39)
[2021-02-23] MEDS: Acetaminophen/Codeine 30-300mg Tablet PO PRN ×3 (06:26→22:28)
[2021-02-23] MEDS: Ascorbic Acid 500 mg Chewable Tablet PO SCH (09:38)
[2021-02-23] MEDS: Calcium Carbonate + Vit D 500 MG TAB PO SCH ×2 (09:40→20:30)
[2021-02-23] MEDS: Gabapentin 100 MG CAP PO SCH ×3 (09:40→20:30)
[2021-02-23] MEDS: Furosemide 20 MG TAB PO SCH ×2 (09:41→13:57)
[2021-02-23] MEDS: Potassium Chloride 10 MEQ TAB PO SCH ×2 (09:41→17:06)
[2021-02-23] MEDS: Polyethylene Glycol 3350 17 GM Packet PO SCH (09:45)
[2021-02-23] MEDS: Enoxaparin Sodium 40 MG/0.4 ML SYRINGE SC SCH (20:31)
[2021-02-24] MEDS: Acetaminophen/Codeine 30-300mg Tablet PO PRN ×2 (07:59→16:33)
[2021-02-24] MEDS: Ascorbic Acid 500 mg Chewable Tablet PO SCH (08:01)
[2021-02-24] MEDS: Calcium Carbonate + Vit D 500 MG TAB PO SCH ×2 (08:01→20:16)
[2021-02-24] MEDS: Gabapentin 100 MG CAP PO SCH ×3 (08:02→20:16)
[2021-02-24] MEDS: Furosemide 20 MG TAB PO SCH ×2 (08:04→15:08)
[2021-02-24] MEDS: Potassium Chloride 10 MEQ TAB PO SCH ×2 (08:04→16:33)
[2021-02-24] MEDS: Polyethylene Glycol 3350 17 GM Packet PO SCH (08:07)
[2021-02-24] MEDS: Enoxaparin Sodium 40 MG/0.4 ML SYRINGE SC SCH (20:16)
[2021-02-25] MEDS: Acetaminophen/Codeine 30-300mg Tablet PO PRN ×2 (05:06→13:46)
[2021-02-25] MEDS: Calcium Carbonate + Vit D 500 MG TAB PO SCH ×2 (09:47→20:46)
[2021-02-25] MEDS: Ascorbic Acid 500 mg Chewable Tablet PO SCH (09:47)
[2021-02-25] MEDS: Furosemide 20 MG TAB PO SCH ×2 (09:48→13:43)
[2021-02-25] MEDS: Gabapentin 100 MG CAP PO SCH ×3 (09:48→22:20)
[2021-02-25] MEDS: Potassium Chloride 10 MEQ TAB PO SCH ×2 (09:48→16:52)
[2021-02-25] MEDS: Polyethylene Glycol 3350 17 GM Packet PO SCH (09:49)
[2021-02-25] MEDS: Enoxaparin Sodium 40 MG/0.4 ML SYRINGE SC SCH (20:46)
[2021-02-26 05:32] VITALS: BP 153/90; TEMP 98.1
[2021-02-26] MEDS: Acetaminophen/Codeine 30-300mg Tablet PO PRN (05:37)
[2021-02-26] MEDS: Polyethylene Glycol 3350 17 GM Packet PO SCH (08:18)
[2021-02-26] MEDS: Ascorbic Acid 500 mg Chewable Tablet PO SCH (08:18)
[2021-02-26] MEDS: Gabapentin 100 MG CAP PO SCH (08:19)
[2021-02-26] MEDS: Calcium Carbonate + Vit D 500 MG TAB PO SCH (08:19)
[2021-02-26] MEDS: Furosemide 20 MG TAB PO SCH ×2 (08:20→13:06)
[2021-02-26] MEDS: Potassium Chloride 10 MEQ TAB PO SCH (08:20)
== END 2021-02-26 13:47 | disposition home or self-care (01) | DRG 948 ==
LOC: BURMED 14:39 → UNDOADMIN 14:39
PROVIDERS: ADMIT Family Medicine; ATTEND Family Medicine
DX: R53.81 Other malaise (principal); N39.0 Urinary tract infection, site not specified; R53.1 Weakness; N28.9 Disorder of kidney and ureter, unspecified; E86.0 Dehydration; I10 Essential (primary) hypertension; Z66 Do not resuscitate; I87.8 Other specified disorders of veins; E87.6 Hypokalemia; N32.81 Overactive bladder; R33.9 Retention of urine, unspecified; Z96.642 Presence of left artificial hip joint; Z96.611 Presence of right artificial shoulder joint; F41.9 Anxiety disorder, unspecified; Z90.49 Acquired absence of other specified parts of digestive tract; Z79.899 Other long term (current) drug therapy; Z91.040 Latex allergy status; Z88.8 Allergy status to other drugs, medicaments and biological substances; Z88.2 Allergy status to sulfonamides; Z88.6 Allergy status to analgesic agent; Z90.710 Acquired absence of both cervix and uterus
CPT/HCPCS: 80053; 85025; J1650

== ENCOUNTER 2021-06-12 01:27 | Inpatient (IN) | payer MEDICARE ==
[2021-06-12 02:01] LABS: Bilirubin Negative (Negative); Blood, Urine Small (Negative); Clarity Slightly Cloudy (Clear); Glucose, Urine (Dipstick) Negative (Negative); Ketone, Urine Negative (Negative); Leukocyte Large (Negative); Nitrite Positive (Negative); Protein, Urine (Dipstick) 30 mg/dL (Neg-Trace); Specific Gravity, Urine 1.015 (1.005-1.030); Urobilinogen 0.2 mg/dL (Less than 2); pH, Urine 5.5 (5.0-9.0)
[2021-06-12 02:01] LABS: Hemoglobin 12.1 g/dL (12.0-16.0); Mean Corpuscular HGB CONC 32.8 g/dL (32.0-36.0); Mean Corpuscular Hemoglobin 31.8 pg (27.0-31.0); Mean Corpuscular Volume 96.8 fL (78.0-98.0); Mean Platelet Volume 6.3 fL (7.4-10.4); Platelet Count 203 thou/uL (130-400); RBC Distribution Width 15.5 % (11.5-14.5); Red Blood Cell (RBC) Count 3.82 mill/uL (4.20-5.40); White Blood Cell (WBC) Count 16.8 thou/uL (4.8-10.8)
[2021-06-12 02:05] LABS: Anisocytosis SLIGHT = 6-15 cells (100X) (0-5/hpf); Band 8 % (5-11); Lymphocytes 6 % (21-51); MDiff Complete? YES; Monocytes 6 % (0-10); Neutrophil 80 % (42-75); Platelet Morphology Comment Appears Adequate
[2021-06-12 02:08] LABS: Bacteria/HPF 2+ HPF (None Seen); RBC/HPF 0-3 HPF (0-3); Squamous Epithelial 0-3 HPF (0-3)
[2021-06-12 02:09] LABS: Oval Fat Bodies/HPF Rare HPF (None Seen)
[2021-06-12 02:09] LABS: ALT (SGPT) 26 U/L (8-55); AST (SGOT) 24 U/L (5-34); Albumin 3.8 g/dL (3.4-4.8); Alkaline Phosphatase 84 U/L (40-110); Anion Gap 12 mmol/L (10-20); BUN (Urea Nitrogen) 15 mg/dL (9.8-20.1); Bilirubin, Total 0.8 mg/dL (0.2-1.2); Calc. Creatinine Clearance 0 mL/min (70-130); Calcium 9.3 mg/dL (7.8-10.44); Carbon Dioxide 24 mmol/L (23-31); Chloride 100 mmol/L (98-107); Globulin 2.7 g/dL (2.4-3.5); Glucose 114 mg/dL (83-110); Magnesium 1.7 mg/dL (1.6-2.6); Potassium 4.2 mmol/L (3.5-5.1); Protein, Total 6.5 g/dL (5.8-8.1); Sodium 132 mmol/L (136-145)
[2021-06-12 02:11] LABS: Renal Epithelial 0-3 HPF (None Seen); Transitional Epithelial 0-3 HPF (None Seen)
[2021-06-12] MEDS ORDERED: cefTRIAXone\\ROCEPHIN 2 GM VIAL ONE (02:16)
[2021-06-12 02:50] VITALS: BMI 23.3
[2021-06-12] MEDS ORDERED: Ondansetron PF 4 MG/2 ML Vial IVP PRN (03:15)
[2021-06-12] MEDS ORDERED: Acetaminophen/Codeine 30-300mg Tablet PO PRN (03:15)
[2021-06-12] MEDS ORDERED: Ondansetron ODT 4 MG TAB SL PRN (03:15)
[2021-06-12] MEDS ORDERED: Acetaminophen 325 MG TAB PO PRN (03:15)
[2021-06-12] MEDS ORDERED: Sodium Chloride 0.9% 1,000 ML IV SCH (03:30)
[2021-06-12 04:27] LABS: SARS-CoV-2 NAA Rapid Test Not Detected (NotDetected)
[2021-06-12] MEDS: Acetaminophen/Codeine 30-300mg Tablet PO PRN ×2 (10:40→19:44)
[2021-06-12] MEDS ORDERED: tiZANidine HCl 4 MG TAB PO PRN (10:50)
[2021-06-12] MEDS: Potassium Chloride 10 MEQ TAB PO SCH ×2 (11:15→17:02)
[2021-06-12] MEDS: Sodium Chloride 0.9% 1,000 ML IV SCH ×2 (11:15→18:38)
[2021-06-12] MEDS: Furosemide 20 MG TAB PO SCH ×2 (11:16→15:38)
[2021-06-12] MEDS: Calcium Carbonate + Vit D 500 MG TAB PO SCH ×2 (11:16→19:45)
[2021-06-12] MEDS: Ascorbic Acid 500 mg Chewable Tablet PO SCH (11:17)
[2021-06-12] MEDS: Enoxaparin Sodium 40 MG/0.4 ML SYRINGE SC SCH (19:46)
[2021-06-13] MEDS: cefTRIAXone\\ROCEPHIN 1 GM in Sodium Chloride 0.9% 100 ML IVPB SCH (02:22)
[2021-06-13] MEDS: Acetaminophen/Codeine 30-300mg Tablet PO PRN ×2 (03:56→16:16)
[2021-06-13 05:44] LABS: #Lymphocytes 0.8 thou/uL (1.20-3.40); #Monocytes 1.4 thou/uL (0.11-0.59); #Neutrophils 13.3 thou/uL (1.40-6.50); %Basophils 0.3 % (0.0-1.0); %Eosinophils 0.1 % (0.0-10.0); %Lymphocytes 5.4 % (21.0-51.0); %Monocytes 8.8 % (0.0-10.0); %Neutrophils 85.5 % (42.0-75.0); Hemoglobin 11.5 g/dL (12.0-16.0); Mean Corpuscular HGB CONC 33.7 g/dL (32.0-36.0); Mean Corpuscular Hemoglobin 32.4 pg (27.0-31.0); Mean Platelet Volume 6.3 fL (7.4-10.4); Platelet Count 202 thou/uL (130-400); RBC Distribution Width 15.5 % (11.5-14.5); Red Blood Cell (RBC) Count 3.56 mill/uL (4.20-5.40); White Blood Cell (WBC) Count 15.5 thou/uL (4.8-10.8)
[2021-06-13 05:46] LABS: ALT (SGPT) 17 U/L (8-55); AST (SGOT) 15 U/L (5-34); Albumin 3.1 g/dL (3.4-4.8); Alkaline Phosphatase 68 U/L (40-110); Anion Gap 14 mmol/L (10-20); BUN (Urea Nitrogen) 10 mg/dL (9.8-20.1); Bilirubin, Total 0.3 mg/dL (0.2-1.2); Calc. Creatinine Clearance 79 mL/min (70-130); Calcium 8.8 mg/dL (7.8-10.44); Carbon Dioxide 20 mmol/L (23-31); Chloride 105 mmol/L (98-107); Globulin 2.5 g/dL (2.4-3.5); Glucose 100 mg/dL (83-110); Potassium 3.8 mmol/L (3.5-5.1); Protein, Total 5.6 g/dL (5.8-8.1); Sodium 135 mmol/L (136-145)
[2021-06-13] MEDS: Potassium Chloride 10 MEQ TAB PO SCH ×2 (07:49→16:18)
[2021-06-13] MEDS: Ascorbic Acid 500 mg Chewable Tablet PO SCH (09:21)
[2021-06-13] MEDS: Calcium Carbonate + Vit D 500 MG TAB PO SCH ×2 (09:22→20:32)
[2021-06-13] MEDS: Furosemide 20 MG TAB PO SCH ×2 (09:22→14:06)
[2021-06-13] MEDS ORDERED: Gabapentin 300 MG CAP PO SCH (10:15)
[2021-06-13] MEDS: Gabapentin 300 MG CAP PO SCH (20:32)
[2021-06-13] MEDS: Enoxaparin Sodium 40 MG/0.4 ML SYRINGE SC SCH (20:36)
[2021-06-14] MEDS: cefTRIAXone\\ROCEPHIN 1 GM in Sodium Chloride 0.9% 100 ML IVPB SCH (01:23)
[2021-06-14] MEDS: Acetaminophen/Codeine 30-300mg Tablet PO PRN ×2 (05:13→13:40)
[2021-06-14 05:43] LABS: Anion Gap 13 mmol/L (10-20); BUN (Urea Nitrogen) 12 mg/dL (9.8-20.1); Calc. Creatinine Clearance 78 mL/min (70-130); Calcium 8.9 mg/dL (7.8-10.44); Carbon Dioxide 24 mmol/L (23-31); Chloride 102 mmol/L (98-107); Glucose 102 mg/dL (83-110); Potassium 3.9 mmol/L (3.5-5.1); Sodium 135 mmol/L (136-145)
[2021-06-14 05:57] VITALS: BP 155/93; TEMP 98.5
[2021-06-14 06:13] LABS: Hemoglobin 12.1 g/dL (12.0-16.0); Mean Corpuscular Hemoglobin 32.3 pg (27.0-31.0); Mean Platelet Volume 6.2 fL (7.4-10.4); Platelet Count 226 thou/uL (130-400); RBC Distribution Width 15.4 % (11.5-14.5); Red Blood Cell (RBC) Count 3.75 mill/uL (4.20-5.40); White Blood Cell (WBC) Count 9.1 thou/uL (4.8-10.8)
[2021-06-14 06:46] LABS: Anisocytosis SLIGHT = 6-15 cells (100X) (0-5/hpf); Band 1 % (5-11); Eosinophils 2 % (0-10); Lymphocytes 10 % (21-51); MDiff Complete? YES; Monocytes 8 % (0-10); Neutrophil 79 % (42-75); Ovalocytes SLIGHT = 2-5 cells (100X) (0-1/hpf); Poikilocytosis SLIGHT = 6-15 cells (100X) (0-5/hpf)
[2021-06-14] MEDS: Ascorbic Acid 500 mg Chewable Tablet PO SCH (08:17)
[2021-06-14] MEDS: Potassium Chloride 10 MEQ TAB PO SCH (08:17)
[2021-06-14] MEDS: Calcium Carbonate + Vit D 500 MG TAB PO SCH (08:17)
[2021-06-14] MEDS: Gabapentin 300 MG CAP PO SCH (08:18)
[2021-06-14] MEDS: Furosemide 20 MG TAB PO SCH ×2 (08:18→14:49)
== END 2021-06-14 15:25 | disposition swing bed (61) | DRG 690 ==
LOC: BURERS 01:27 → BURMED 02:23
PROVIDERS: ADMIT Family Medicine; ATTEND Family Medicine
DX: N39.0 Urinary tract infection, site not specified (principal); G89.29 Other chronic pain; M54.5 Low back pain; E86.0 Dehydration; I10 Essential (primary) hypertension; F41.9 Anxiety disorder, unspecified; M51.36 Other intervertebral disc degeneration, lumbar region; Z96.642 Presence of left artificial hip joint; Z96.611 Presence of right artificial shoulder joint; I87.2 Venous insufficiency (chronic) (peripheral); Z20.822 Contact with and (suspected) exposure to COVID-19; Z90.710 Acquired absence of both cervix and uterus; Z90.49 Acquired absence of other specified parts of digestive tract; Z98.890 Other specified postprocedural states; Z88.2 Allergy status to sulfonamides; Z88.8 Allergy status to other drugs, medicaments and biological substances; Z91.040 Latex allergy status; Z79.899 Other long term (current) drug therapy
CPT/HCPCS: 36415; 71045; 72100; 80048; 80053; 81003; 81015; 83605; 83735; 85025; 87040; 87077; 87086; 87149; 87186; 96365; 97602; J0696; J1650; J3490; J7050; U0002

== ENCOUNTER 2021-06-14 15:26 | Inpatient (IN) | payer MEDICARE ==
[2021-06-14 16:43] VITALS: BMI 25.7
[2021-06-14] MEDS ORDERED: Ondansetron PF 4 MG/2 ML Vial IVP PRN (19:29)
[2021-06-14] MEDS: Gabapentin 300 MG CAP PO SCH (20:09)
[2021-06-14] MEDS: Enoxaparin Sodium 40 MG/0.4 ML SYRINGE SC SCH (20:09)
[2021-06-14] MEDS: Calcium Carbonate 600 MG + Vit D TAB PO SCH (20:10)
[2021-06-15] MEDS: cefTRIAXone\\ROCEPHIN 1 GM in Sodium Chloride 0.9% 100 ML IVPB SCH (02:35)
[2021-06-15] MEDS: Acetaminophen/Codeine 30-300mg Tablet PO PRN ×2 (06:45→15:31)
[2021-06-15] MEDS: Ascorbic Acid 500 mg Chewable Tablet PO SCH (08:34)
[2021-06-15] MEDS: Calcium Carbonate 600 MG + Vit D TAB PO SCH ×2 (08:35→20:35)
[2021-06-15] MEDS: Gabapentin 300 MG CAP PO SCH ×2 (08:35→20:35)
[2021-06-15] MEDS: Potassium Chloride 10 MEQ TAB PO SCH ×2 (08:36→17:54)
[2021-06-15] MEDS: Furosemide 20 MG TAB PO SCH ×2 (08:36→15:31)
[2021-06-15] MEDS: Enoxaparin Sodium 40 MG/0.4 ML SYRINGE SC SCH (20:36)
[2021-06-16] MEDS: cefTRIAXone\\ROCEPHIN 1 GM in Sodium Chloride 0.9% 100 ML IVPB SCH (02:34)
[2021-06-16] MEDS: Acetaminophen/Codeine 30-300mg Tablet PO PRN ×2 (02:43→14:07)
[2021-06-16] MEDS: Potassium Chloride 10 MEQ TAB PO SCH ×2 (08:13→17:09)
[2021-06-16] MEDS: Ascorbic Acid 500 mg Chewable Tablet PO SCH (08:13)
[2021-06-16] MEDS: Furosemide 20 MG TAB PO SCH ×2 (08:14→14:08)
[2021-06-16] MEDS: Calcium Carbonate 600 MG + Vit D TAB PO SCH ×2 (08:14→21:18)
[2021-06-16] MEDS: Gabapentin 300 MG CAP PO SCH ×2 (08:14→21:17)
[2021-06-16] MEDS: tiZANidine HCl 4 MG TAB PO PRN (17:13)
[2021-06-16] MEDS: Enoxaparin Sodium 40 MG/0.4 ML SYRINGE SC SCH (21:17)
[2021-06-17] MEDS: cefTRIAXone\\ROCEPHIN 1 GM in Sodium Chloride 0.9% 100 ML IVPB SCH (02:22)
[2021-06-17] MEDS: Acetaminophen/Codeine 30-300mg Tablet PO PRN ×2 (02:27→14:23)
[2021-06-17 06:17] LABS: Hemoglobin 11.4 g/dL (12.0-16.0); Platelet Count 325 thou/uL (130-400)
[2021-06-17 06:27] LABS: Calc. Creatinine Clearance 81 mL/min (70-130)
[2021-06-17] MEDS: Potassium Chloride 10 MEQ TAB PO SCH ×2 (09:35→17:58)
[2021-06-17] MEDS: Ascorbic Acid 500 mg Chewable Tablet PO SCH (09:36)
[2021-06-17] MEDS: Gabapentin 300 MG CAP PO SCH ×2 (09:37→20:45)
[2021-06-17] MEDS: Calcium Carbonate 600 MG + Vit D TAB PO SCH ×2 (09:38→20:44)
[2021-06-17] MEDS: Cephalexin 250 MG CAP PO SCH ×2 (09:38→20:44)
[2021-06-17] MEDS: Furosemide 20 MG TAB PO SCH ×2 (09:51→14:23)
[2021-06-17] MEDS: Enoxaparin Sodium 40 MG/0.4 ML SYRINGE SC SCH (20:45)
[2021-06-18] MEDS: Furosemide 20 MG TAB PO SCH ×2 (08:22→13:28)
[2021-06-18] MEDS: Acetaminophen/Codeine 30-300mg Tablet PO PRN ×2 (08:22→13:28)
[2021-06-18] MEDS: Cephalexin 250 MG CAP PO SCH ×2 (08:22→21:47)
[2021-06-18] MEDS: Gabapentin 300 MG CAP PO SCH ×2 (08:22→21:46)
[2021-06-18] MEDS: Calcium Carbonate 600 MG + Vit D TAB PO SCH ×2 (08:23→21:47)
[2021-06-18] MEDS: Potassium Chloride 10 MEQ TAB PO SCH ×2 (08:23→16:12)
[2021-06-18] MEDS: Ascorbic Acid 500 mg Chewable Tablet PO SCH (08:23)
[2021-06-18] MEDS: Enoxaparin Sodium 40 MG/0.4 ML SYRINGE SC SCH (21:48)
[2021-06-18] MEDS: diphenhydrAMINE 25 MG CAP PO PRN (22:36)
[2021-06-19] MEDS: Acetaminophen/Codeine 30-300mg Tablet PO PRN ×2 (04:31→14:21)
[2021-06-19] MEDS: Furosemide 20 MG TAB PO SCH ×2 (10:37→14:21)
[2021-06-19] MEDS: Calcium Carbonate 600 MG + Vit D TAB PO SCH ×2 (10:37→20:53)
[2021-06-19] MEDS: Potassium Chloride 10 MEQ TAB PO SCH ×2 (10:37→17:56)
[2021-06-19] MEDS: Ascorbic Acid 500 mg Chewable Tablet PO SCH (10:38)
[2021-06-19] MEDS: Gabapentin 300 MG CAP PO SCH ×2 (10:38→20:51)
[2021-06-19] MEDS: Cephalexin 250 MG CAP PO SCH ×2 (10:39→20:53)
[2021-06-19] MEDS: diphenhydrAMINE 25 MG CAP PO PRN (10:39)
[2021-06-19] MEDS: Enoxaparin Sodium 40 MG/0.4 ML SYRINGE SC SCH (20:51)
[2021-06-20 05:21] LABS: Hemoglobin 11.1 g/dL (12.0-16.0); Platelet Count 418 thou/uL (130-400)
[2021-06-20] MEDS: Acetaminophen/Codeine 30-300mg Tablet PO PRN ×2 (05:57→13:31)
[2021-06-20] MEDS: Gabapentin 300 MG CAP PO SCH ×2 (08:23→20:49)
[2021-06-20] MEDS: Ascorbic Acid 500 mg Chewable Tablet PO SCH (08:23)
[2021-06-20] MEDS: Furosemide 20 MG TAB PO SCH ×2 (08:23→13:31)
[2021-06-20] MEDS: Calcium Carbonate 600 MG + Vit D TAB PO SCH ×2 (08:23→20:50)
[2021-06-20] MEDS: Potassium Chloride 10 MEQ TAB PO SCH ×2 (08:23→16:28)
[2021-06-20] MEDS: Cephalexin 250 MG CAP PO SCH ×2 (08:25→20:51)
[2021-06-20] MEDS: Enoxaparin Sodium 40 MG/0.4 ML SYRINGE SC SCH (20:49)
[2021-06-21] MEDS: Acetaminophen/Codeine 30-300mg Tablet PO PRN ×2 (04:13→15:09)
[2021-06-21] MEDS: Cephalexin 250 MG CAP PO SCH ×2 (09:55→21:10)
[2021-06-21] MEDS: Calcium Carbonate 600 MG + Vit D TAB PO SCH ×2 (09:55→21:10)
[2021-06-21] MEDS: Potassium Chloride 10 MEQ TAB PO SCH ×2 (09:55→17:05)
[2021-06-21] MEDS: Ascorbic Acid 500 mg Chewable Tablet PO SCH (09:55)
[2021-06-21] MEDS: Furosemide 20 MG TAB PO SCH ×2 (09:56→15:10)
[2021-06-21] MEDS: Gabapentin 300 MG CAP PO SCH ×2 (09:56→21:10)
[2021-06-21] MEDS: tiZANidine HCl 4 MG TAB PO PRN (10:24)
[2021-06-21] MEDS: Enoxaparin Sodium 40 MG/0.4 ML SYRINGE SC SCH (21:10)
[2021-06-22] MEDS: Acetaminophen/Codeine 30-300mg Tablet PO PRN ×2 (03:37→12:30)
[2021-06-22] MEDS: diphenhydrAMINE 25 MG CAP PO PRN ×2 (04:30→20:44)
[2021-06-22] MEDS: Ascorbic Acid 500 mg Chewable Tablet PO SCH (08:46)
[2021-06-22] MEDS: Potassium Chloride 10 MEQ TAB PO SCH ×2 (08:46→16:45)
[2021-06-22] MEDS: Furosemide 20 MG TAB PO SCH ×2 (08:46→13:12)
[2021-06-22] MEDS: Gabapentin 300 MG CAP PO SCH ×2 (08:47→20:28)
[2021-06-22] MEDS: Calcium Carbonate 600 MG + Vit D TAB PO SCH ×2 (08:47→20:29)
[2021-06-22] MEDS: tiZANidine HCl 4 MG TAB PO PRN (17:51)
[2021-06-22] MEDS: Enoxaparin Sodium 40 MG/0.4 ML SYRINGE SC SCH (20:29)
[2021-06-23 06:21] LABS: Platelet Count 442 thou/uL (130-400)
[2021-06-23] MEDS: Furosemide 20 MG TAB PO SCH ×2 (08:54→13:13)
[2021-06-23] MEDS: Ascorbic Acid 500 mg Chewable Tablet PO SCH (08:54)
[2021-06-23] MEDS: Potassium Chloride 10 MEQ TAB PO SCH ×2 (08:54→17:08)
[2021-06-23] MEDS: Calcium Carbonate 600 MG + Vit D TAB PO SCH ×2 (08:54→20:46)
[2021-06-23] MEDS: Gabapentin 300 MG CAP PO SCH ×2 (08:55→20:43)
[2021-06-23] MEDS ORDERED: Senokot S 8.6-50 MG TAB PO SCH (11:00)
[2021-06-23] MEDS: Acetaminophen/Codeine 30-300mg Tablet PO PRN (12:29)
[2021-06-23] MEDS: Enoxaparin Sodium 40 MG/0.4 ML SYRINGE SC SCH (20:43)
[2021-06-23] MEDS: diphenhydrAMINE 25 MG CAP PO PRN (20:51)
[2021-06-24] MEDS: Acetaminophen/Codeine 30-300mg Tablet PO PRN ×2 (05:58→14:15)
[2021-06-24] MEDS: Ascorbic Acid 500 mg Chewable Tablet PO SCH (08:26)
[2021-06-24] MEDS: Calcium Carbonate 600 MG + Vit D TAB PO SCH ×2 (08:26→20:55)
[2021-06-24] MEDS: Potassium Chloride 10 MEQ TAB PO SCH ×2 (08:26→17:07)
[2021-06-24] MEDS: Senokot S 8.6-50 MG TAB PO SCH (08:26)
[2021-06-24] MEDS: Furosemide 20 MG TAB PO SCH ×2 (08:26→14:15)
[2021-06-24] MEDS: Gabapentin 300 MG CAP PO SCH ×2 (08:28→20:55)
[2021-06-24] MEDS: diphenhydrAMINE 25 MG CAP PO PRN (09:13)
[2021-06-24] MEDS: Enoxaparin Sodium 40 MG/0.4 ML SYRINGE SC SCH (20:55)
[2021-06-24] MEDS ORDERED: diphenhydrAMINE 25 MG CAP ONE (20:55)
[2021-06-25] MEDS: Acetaminophen/Codeine 30-300mg Tablet PO PRN ×2 (05:35→16:11)
[2021-06-25] MEDS: Gabapentin 300 MG CAP PO SCH ×2 (08:46→20:33)
[2021-06-25] MEDS: Ascorbic Acid 500 mg Chewable Tablet PO SCH (08:46)
[2021-06-25] MEDS: Senokot S 8.6-50 MG TAB PO SCH (08:46)
[2021-06-25] MEDS: Potassium Chloride 10 MEQ TAB PO SCH ×2 (08:47→17:27)
[2021-06-25] MEDS: Calcium Carbonate 600 MG + Vit D TAB PO SCH ×2 (08:47→20:34)
[2021-06-25] MEDS: Furosemide 20 MG TAB PO SCH ×2 (08:47→13:35)
[2021-06-25] MEDS: Enoxaparin Sodium 40 MG/0.4 ML SYRINGE SC SCH (20:34)
[2021-06-25] MEDS: diphenhydrAMINE 25 MG CAP PO PRN (20:34)
[2021-06-26] MEDS: Acetaminophen 325 MG TAB PO PRN ×2 (04:59→20:10)
[2021-06-26 05:52] LABS: Hemoglobin 11.6 g/dL (12.0-16.0)
[2021-06-26 05:53] LABS: Platelet Count 420 thou/uL (130-400)
[2021-06-26] MEDS: Gabapentin 300 MG CAP PO SCH ×2 (09:42→20:10)
[2021-06-26] MEDS: Senokot S 8.6-50 MG TAB PO SCH (09:43)
[2021-06-26] MEDS: Ascorbic Acid 500 mg Chewable Tablet PO SCH (09:43)
[2021-06-26] MEDS: Calcium Carbonate 600 MG + Vit D TAB PO SCH ×2 (09:44→20:10)
[2021-06-26] MEDS: Furosemide 20 MG TAB PO SCH ×2 (09:44→13:55)
[2021-06-26] MEDS: Potassium Chloride 10 MEQ TAB PO SCH ×2 (09:44→17:39)
[2021-06-26] MEDS: Acetaminophen/Codeine 30-300mg Tablet PO PRN (13:05)
[2021-06-26] MEDS: Enoxaparin Sodium 40 MG/0.4 ML SYRINGE SC SCH (20:10)
[2021-06-26] MEDS: diphenhydrAMINE 25 MG CAP PO PRN (20:10)
[2021-06-27] MEDS: Acetaminophen 325 MG TAB PO PRN (05:29)
[2021-06-27 05:52] VITALS: BP 145/78; TEMP 98.1
[2021-06-27] MEDS: Furosemide 20 MG TAB PO SCH (08:30)
[2021-06-27] MEDS: Ascorbic Acid 500 mg Chewable Tablet PO SCH (08:30)
[2021-06-27] MEDS: Gabapentin 300 MG CAP PO SCH (08:31)
[2021-06-27] MEDS: Calcium Carbonate 600 MG + Vit D TAB PO SCH (08:31)
[2021-06-27] MEDS: Senokot S 8.6-50 MG TAB PO SCH (08:31)
[2021-06-27] MEDS: Potassium Chloride 10 MEQ TAB PO SCH (08:32)
[2021-06-27] MEDS: tiZANidine HCl 4 MG TAB PO PRN (08:38)
== END 2021-06-27 13:35 | disposition home or self-care (01) | DRG 948 ==
LOC: BURMED 15:26
PROVIDERS: ADMIT Family Medicine; ATTEND Family Medicine
DX: R53.1 Weakness (principal); N39.0 Urinary tract infection, site not specified; R78.81 Bacteremia; G89.29 Other chronic pain; M19.012 Primary osteoarthritis, left shoulder; M54.5 Low back pain; Z88.2 Allergy status to sulfonamides; Z88.5 Allergy status to narcotic agent; Z88.8 Allergy status to other drugs, medicaments and biological substances; Z91.040 Latex allergy status; Z91.018 Allergy to other foods; Z79.899 Other long term (current) drug therapy
CPT/HCPCS: 36415; 82565; 85014; 85018; 85049; J0696; J1650; J3490; Q0163

== ENCOUNTER 2025-03-28 15:04 | Outpatient (CLI) | payer MEDICARE | END 2025-03-28 15:05 | disposition home or self-care (01) | LOC: BURRAD 15:04 | PROVIDERS: ATTEND Family Medicine | DX: M79.671 Pain in right foot (principal); S82.51XA Displaced fracture of medial malleolus of right tibia, initial encounter for closed fracture ==

== ENCOUNTER 2025-06-10 10:48 | Inpatient (IN) | payer MEDICARE ==
[2025-06-10 14:49] VITALS: BMI 28.3
[2025-06-10] MEDS: Vancomycin HCl 750 MG in Sodium Chloride 0.9% 250 ML 250 ML IVPB SCH (18:16)
[2025-06-10] MEDS: Gabapentin 300 MG CAP PO SCH (21:23)
[2025-06-10] MEDS: Famotidine 20 MG TAB PO SCH (21:23)
[2025-06-10] MEDS: Enoxaparin 40 MG (0.4 mL) SYRINGE SC SCH (21:24)
[2025-06-11 05:09] LABS: #Basophils 0.1 thou/uL (0.0-0.2); #Eosinophils 0.4 thou/uL (0.0-0.7); #Lymphocytes 1.9 thou/uL (1.20-3.40); #Monocytes 0.7 thou/uL (0.11-0.59); #Neutrophils 4.3 thou/uL (1.40-6.50); %Basophils 1.2 % (0.0-1.0); %Eosinophils 5.3 % (0.0-10.0); %Lymphocytes 26.0 % (21.0-51.0); %Monocytes 9.6 % (0.0-10.0); %Neutrophils 57.9 % (42.0-75.0); Hematocrit 33.2 % (36.0-47.0); Hemoglobin 11.5 g/dL (12.0-16.0); Mean Corpuscular Hemoglobin 30.7 pg (27.0-31.0); Mean Corpuscular Volume 89.0 fl (78.0-98.0); Platelet Count 406 10x3/uL (130-400); Red Blood Cell (RBC) Count 3.73 mill/uL (4.20-5.40); White Blood Cell (WBC) Count 7.4 10x3/uL (4.8-10.8)
[2025-06-11 05:26] LABS: ALT (SGPT) 21 U/L (Less than 34); AST (SGOT) 22 U/L (11-34); Albumin 2.9 g/dL (3.1-4.5); Alkaline Phosphatase 96 U/L (40-110); Anion Gap 18 mmol/L (10-20); BUN (Urea Nitrogen) 11 mg/dL (9.8-20.1); Bilirubin, Total 0.3 mg/dL (0.3-1.2); Calc. Creatinine Clearance 94 mL/min (70-130); Calcium 9.5 mg/dL (7.8-10.44); Carbon Dioxide 21 mmol/L (23-31); Chloride 109 mmol/L (98-107); Globulin 4.0 g/dL (2.4-3.5); Glucose 94 mg/dL (83-110); Potassium 3.9 mmol/L (3.5-5.1); Sodium 144 mmol/L (136-145)
[2025-06-11] MEDS: Acetaminophen 325 MG TAB PO PRN (06:00)
[2025-06-11] MEDS: Furosemide 20 MG TAB PO SCH (09:02)
[2025-06-11 15:26] LABS: Vancomycin, Random 13.7 ug/mL (See Comment)
[2025-06-12 13:53] VITALS: BMI 28.3
[2025-06-16 05:18] LABS: Vancomycin, Random 15.2 ug/mL (See Comment)
[2025-06-16 05:29] LABS: Calc. Creatinine Clearance 86.0 mL/min (70-130)
[2025-06-20 05:40] LABS: #Basophils 0.1 thou/uL (0.0-0.2); #Eosinophils 0.4 thou/uL (0.0-0.7); #Lymphocytes 1.7 thou/uL (1.20-3.40); #Monocytes 0.7 thou/uL (0.11-0.59); #Neutrophils 3.4 thou/uL (1.40-6.50); %Basophils 1.7 % (0.0-1.0); %Eosinophils 6.4 % (0.0-10.0); %Lymphocytes 27.2 % (21.0-51.0); %Monocytes 11.1 % (0.0-10.0); %Neutrophils 53.6 % (42.0-75.0); Hematocrit 33.8 % (36.0-47.0); Hemoglobin 11.4 g/dL (12.0-16.0); Mean Corpuscular Hemoglobin 30.8 pg (27.0-31.0); Mean Corpuscular Volume 91.3 fl (78.0-98.0); Platelet Count 361 10x3/uL (130-400); Red Blood Cell (RBC) Count 3.70 mill/uL (4.20-5.40); White Blood Cell (WBC) Count 6.3 10x3/uL (4.8-10.8)
[2025-06-20 06:43] LABS: Anion Gap 17 mmol/L (10-20); BUN (Urea Nitrogen) 23 mg/dL (9.8-20.1); Calc. Creatinine Clearance 81 mL/min (70-130); Calcium 9.5 mg/dL (7.8-10.44); Carbon Dioxide 23 mmol/L (23-31); Chloride 106 mmol/L (98-107); Glucose 87 mg/dL (83-110); Potassium 4.6 mmol/L (3.5-5.1); Sodium 141 mmol/L (136-145)
[2025-06-21] MEDS: Vancomycin HCl 750 MG in Sodium Chloride 0.9% 250 ML 250 ML IVPB SCH (11:15)
[2025-06-21] MEDS: Calcium Carbonate 500 MG ChewTAB PO PRN (18:04)
[2025-06-23 05:17] LABS: Calc. Creatinine Clearance 63.0 mL/min (70-130); Vancomycin, Random 24.2 ug/mL (See Comment)
[2025-06-23] MEDS: Senokot S 8.6-50 MG TAB PO PRN (20:35)
[2025-06-24 05:21] LABS: Calc. Creatinine Clearance 75.0 mL/min (70-130)
[2025-06-24 05:23] LABS: Vancomycin, Random 19.1 ug/mL (See Comment)
[2025-06-24] MEDS: Vancomycin HCl 750 MG in Sodium Chloride 0.9% 250 ML 250 ML IVPB SCH (08:21)
[2025-06-26 05:13] LABS: Calc. Creatinine Clearance 75.0 mL/min (70-130); Vancomycin, Random 17.7 ug/mL (See Comment)
[2025-07-01 06:10] LABS: Calc. Creatinine Clearance 75.0 mL/min (70-130); Vancomycin, Random 19.8 ug/mL (See Comment)
[2025-07-05] MEDS: Vancomycin 1 GM in Sodium Chloride 0.9% 250 ML 250 ML IVPB SCH (08:53)
[2025-07-08 05:16] LABS: Vancomycin, Random 16.5 ug/mL (See Comment)
[2025-07-08 05:17] LABS: Calc. Creatinine Clearance 75.0 mL/min (70-130)
[2025-07-12 05:20] LABS: Calc. Creatinine Clearance 74.0 mL/min (70-130); Vancomycin, Random 15.8 ug/mL (See Comment)
[2025-07-13 05:01] LABS: #Basophils 0.1 thou/uL (0.0-0.2); #Eosinophils 0.3 thou/uL (0.0-0.7); #Lymphocytes 1.9 thou/uL (1.20-3.40); #Monocytes 0.7 thou/uL (0.11-0.59); #Neutrophils 2.7 thou/uL (1.40-6.50); %Basophils 1.1 % (0.0-1.0); %Eosinophils 6.0 % (0.0-10.0); %Lymphocytes 33.7 % (21.0-51.0); %Monocytes 11.6 % (0.0-10.0); %Neutrophils 47.6 % (42.0-75.0); Hematocrit 33.8 % (36.0-47.0); Hemoglobin 12.1 g/dL (12.0-16.0); Mean Corpuscular Hemoglobin 31.3 pg (27.0-31.0); Mean Corpuscular Volume 87.3 fl (78.0-98.0); Platelet Count 222 10x3/uL (130-400); Red Blood Cell (RBC) Count 3.88 mill/uL (4.20-5.40); White Blood Cell (WBC) Count 5.6 10x3/uL (4.8-10.8)
[2025-07-13 05:16] LABS: Calc. Creatinine Clearance 69.0 mL/min (70-130)
[2025-07-14] MEDS: Oxybutynin 5 MG TAB PO SCH (11:40)
[2025-07-17 05:46] VITALS: BP 126/66; TEMP 97.6
== END 2025-07-17 12:46 | DRG 945 ==
LOC: BURMED 13:31
PROVIDERS: ADMIT Family Medicine; ATTEND Family Medicine
PROC: F07Z5ZZ Bed Mobility Treatment (ICD-10-PCS; principal; 2025-06-11)
PROC: F08Z0ZZ Bathing/Showering Techniques Treatment (ICD-10-PCS; 2025-06-11)
DX: R53.81 Other malaise (principal); M00.9 Pyogenic arthritis, unspecified; I87.2 Venous insufficiency (chronic) (peripheral); G62.9 Polyneuropathy, unspecified; S82.841G Displaced bimalleolar fracture of right lower leg, subsequent encounter for closed fracture with delayed healing; N32.81 Overactive bladder; R26.89 Other abnormalities of gait and mobility; Z79.899 Other long term (current) drug therapy
CPT/HCPCS: 36415; 80048; 80053; 80202; 82565; 85025; 97602; J1650; J3373; J7050